=== PATIENT | male | born 1950 | race Caucasian/White ===

== ENCOUNTER 2016-05-08 16:44 | Inpatient (IN) | payer OTHER ==
[~2016-05-08] VITALS: Ht 182.9 cm; Wt 64.9 kg
[~2016-05-08 16:44] MED LIST: ADVAIR DISKUS 21 DSK IH; PREDNISONE10 MG PO; PROAIR HFA0.09 MG/Ac IH; SPIRIVA MD18 MCG/CAP INH; VIBRAMYCIN100 MG PO
--- NOTE | 2016-05-08 16:44 | NUR ---
PT BIBA TO BED 2.
--- NOTE | 2016-05-08 16:50 | NUR ---
65M BIBA FROM HOME C/O SUDDEN ONSET SHORTNESS OF BREATH X TODAY; DIMINISHED BREATH SOUNDS HEARD ON AUSCULATION W/ LABORED BREATHING AND TACHYPNEA AT THIS TIME; PT A&OX4, DENIES PAIN, N/V/D AT THIS TIME; SKIN IS WARM/DRY/INTACT; PT PLACED ON MONITOR, RESTING IN BED W/ HOB ELEVATED AND IN LOWEST POSITION; POSITIONED FOR COMFORT; ER MADE AWARE OF STATUS. WILL CONTINUE TO MONITOR. Addendum: 05/08/16 at 1834 by [facility] 13 BHARAT TO RT GROIN AREA; NO REDNESS, DRAINAGE OR INFLAMMATION NOTED AT THIS TIME; NO C/O PAIN AT THIS TIME.
[2016-05-08] MEDS ORDERED: DEXAMETHASONE 10 MG/ML VIAL IVP ONE (16:55)
[2016-05-08] MEDS ORDERED: IPRATROPIUM 0.02% 0.5 MG/2.5 ML NEBU INH ONE ×2 (16:55)
[2016-05-08] MEDS ORDERED: ALBUTEROL 0.083% 2.5 MG/3 ML NEBU INH ONE ×2 (16:55)
[2016-05-08 16:57] VITALS: BP 125/72
[2016-05-08] MEDS ORDERED: MAG SULF 2000 MG/WATER PREMIX 50 ML IV ONE ×2 (17:15→17:17)
--- NOTE | 2016-05-08 17:28 | NUR ---
RT AT BEDSIDE.
--- NOTE | 2016-05-08 17:46 | NUR ---
XRAY AT BEDSIDE.
--- NOTE | 2016-05-08 18:40 | NUR ---
CALLED [facility] TO GIVE REPORT; [facility] STATES WILL CALL BACK IN 5 MINUTES.
--- NOTE | 2016-05-08 18:48 | NUR ---
WARM BLANKET PROVIDED TO PT FOR COMFORT.
--- NOTE | 2016-05-08 18:53 | NUR ---
REPORT GIVEN TO MIAH SEGURA.
--- NOTE | 2016-05-08 19:02 | NUR ---
Patient will be admitted to care of DR. DAVIS. Admited to TELEMETRY. Will go to room 111B. Belongings list completed. Report to MIAH SEGURA.
--- NOTE | 2016-05-08 19:05 | NUR ---
RECEIVED REPORT FROM CHARGE NURSE GIUSEPPE. PATIENT ARRIVED ON UNIT JUST AFTER 1900. PATIENT IS AAOX4 , ARRIVED ON UNIT WITH O2 MASK AT 8L, NO SOB AT THIS TIME. PATIENT HAS COPD AND BARREL CHEST NOTED. PATIENT HAS IV TO LH #20 SL, PATENT. NOTED PATIENT HAS BHARAT TO RIGHT GROIN S/P HERNIA SURGERY ON 05/03/16 AT [facility]. INCISION IS DRY AND INTACT, NO SIGN OF REDNESS OR INFECTION. ALL OTHER SKIN INTACT. ORIENTED PATIENT TO ROOM AND CALL LIGHT. PATIENT PLACED OF FALL PRECAUTIONS, SIGN POSTED, WRIST BAND APPLIED. DISCUSSED PLAN OF CARE WITH PATIENT, PATIENT VERBALIZED UNDERSTANDING. CALL LIGHT WITHIN REACH. WILL CONTINUE TO MONITOR.
[2016-05-08] MEDS ORDERED: ONDANSETRON 4 MG/2 ML VIAL IVP PRN (19:40)
[2016-05-08] MEDS ORDERED: LEVOFLOXACIN 750 MG/D5W PREMIX 150 ML IV SCH (19:40)
[2016-05-08] MEDS ORDERED: NACL 0.45% 1,000 ML IV SCH (19:40)
[2016-05-08] MEDS ORDERED: ACETAMINOPHEN 325 MG TAB PO PRN (19:40)
[2016-05-08] MEDS ORDERED: TEMAZEPAM 15 MG CAP PO PRN (19:40)
[2016-05-08 20:00] VITALS: BP 118/64
--- NOTE | 2016-05-08 20:30 | NUR ---
RT PLACED PATIENT ON NASAL CANNULA @2L. PATIENT SATURATION IN HIGH 90S. NO SOB NOTED. CALL LIGHT WITHIN REACH. WILL CONTINUE TO MONITOR.
[2016-05-08] MEDS: methylPREDNISolone SS 40 MG/ML VIAL IVP SCH (21:16)
--- NOTE | 2016-05-08 21:37 | NUR ---
PM MEDS GIVEN, PATIENT TOLERATED WELL. PROVIDED THE PATIENT A SANDWICH, CALL LIGHT WITHIN REACH, WILL CONTINUE TO MONITOR.
[2016-05-08] MEDS: ALBUTEROL 0.083% 2.5 MG/3 ML NEBU INH SCH (23:15)
[2016-05-08] MEDS: IPRATROPIUM 0.02% 0.5 MG/2.5 ML NEBU INH SCH (23:16)
--- NOTE | 2016-05-08 23:43 | NUR ---
PATIENT RECEIVED BREATHING TREATMENT, STATED HE WOULD LIKE TO RELAX AND GET SOME REST NOW. NO SOB OR SIGN OF DISTRESS, CALL LIGHT WITHIN REACH. WILL CONTINUE TO MONITOR.
[2016-05-09] VITALS: BP 116/73
--- NOTE | 2016-05-09 01:32 | NUR ---
PATIENT SLEEPING COMFORTABLE, VITAL SIGNS STABLE, CALL LIGHT WITHIN REACH. WILL CONTINUE TO MONITOR.
--- NOTE | 2016-05-09 02:40 | NUR ---
PATIENT SLEEPING, CALL LIGHT WITHIN REACH. NO SOB OR SIGN OF DISTRESS, WILL CONTINUE TO MONITOR.
[2016-05-09] MEDS: ALBUTEROL 0.083% 2.5 MG/3 ML NEBU INH SCH ×6 (03:40→23:38)
[2016-05-09] MEDS: IPRATROPIUM 0.02% 0.5 MG/2.5 ML NEBU INH SCH ×6 (03:40→23:38)
[2016-05-09 04:00] VITALS: BP 115/67
--- NOTE | 2016-05-09 04:18 | NUR ---
PER RT AFTER PATIENT'S BREATHING TREATMENT, PATIENTS LUNGS STILL HAD A LOT OF FLUID WITH RONCHI AND RT RECOMMENDED LASIX, PAGED DR CLARK ABOUT RECOMMENDATION, SAID NO BECAUSE PATIENT IS NOT IN HEART FAILURE. PATIENT SITTING AT BEDSIDE, CALL LIGHT WITHIN REACH. WILL CONTINUE TO MONITOR.
[2016-05-09] MEDS: methylPREDNISolone SS 40 MG/ML VIAL IVP SCH ×3 (05:20→20:36)
--- NOTE | 2016-05-09 06:00 | NUR ---
PATIENT RESTING IN BED, PROVIDED PATIENT WITH NEW GOWN, SCDS APPLIED, NO SOB OR SIGN OF DISTRESS, CALL LIGHT WITHIN REACH. WILL CONTINUE TO MONITOR.
--- NOTE | 2016-05-09 07:27 | NUR ---
RECEIVED REPORT FROM NIGHT NURSE. PT IS AAOX4, IV TO LEFT HAND NS @ 50ML/HR INFUSING WELL, O2 3L VIA NC, INCISION TO GROIN WITH 13 BHARAT CRISTI FROM PERVIOUS HERNIA SX. INITIAL ASSESSMENT COMPLETED, REVIEWED PLAN OF CARE WITH PT, PT VERBALIZED UNDERSTANDING, ALL NEEDS MET, ALL SAFETY PRECAUTIONS MET, CALL LIGHT WITHIN REACH, WILL CONTINUE TO MONITOR.
--- NOTE | 2016-05-09 07:27 | NUR ---
ENDORSED PATIENT TO DAY RN AT BEDSIDE, PATIENT IN STABLE CONDITION.
[2016-05-09 08:00] VITALS: BP 115/76
[2016-05-09] MEDS: ENOXAPARIN 40 MG/0.4 ML SYR SUBQ SCH (09:11)
--- NOTE | 2016-05-09 09:14 | NUR ---
DUE MEDICATIONS GIVEN, PT TOLERATED WELL, CURRENTLY SITTING AT BEDSIDE. NO S/S OF RESPIRATORY DISTRESS NOTED. IV NOT FLUSHING, WILL RESTART IV. CALL LIGHT WITHIN REACH. WILL CONTINUE TO MONITOR.
--- NOTE | 2016-05-09 10:35 | NUR ---
PT CURRENTLY REFUSING NEW IV INSERTION. WILL ATTEMPT AGAIN AT A LATER TIME.
[2016-05-09] MEDS ORDERED: NORVASC5 MG PO (11:16)
[2016-05-09] MEDS ORDERED: LOSARTAN POTASS1 TA4 PO (11:16)
[2016-05-09] MEDS ORDERED: FLAGYL500 M1 PO (11:16)
[2016-05-09] MEDS ORDERED: ACETAMIN-CODE12.5 ML PO (11:16)
[2016-05-09] MEDS ORDERED: LEVOFLOXACIN750 MG PO (11:16)
[2016-05-09] MEDS ORDERED: TESSALON PERLE100 MG PO (11:16)
[2016-05-09] MEDS ORDERED: COLACE100 MG PO (11:16)
--- NOTE | 2016-05-09 11:16 | NUR ---
PATIENT HAS BEEN SCREENED AND CATEGORIZED HIGH NUTRITION RISK. PATIENT WILL BE SEEN WITHIN 1-2 DAYS OF ADMISSION. 05/09/16-05/10/[address]
--- NOTE | 2016-05-09 11:45 | NUR ---
PT CURRENTLY SLEEPING, NO S/S OF RESPIRATORY DISTRESS, O2 3L VIA NC, CALL LIGHT WITHIN REACH.
--- NOTE | 2016-05-09 11:55 | NUR ---
WOUND CARE NOTES: SEEN PATIENT TODAY RE: S/P HERNIA SURGERY. PLEASE REFER TO WOUND ASSESSMENT FLOWSHEET FOR UPDATED ENTRY. RIGHT INGUINAL INCISION INTACT WITH 13 BHARAT. PW BRUISED. NO COMPLAINTS OF PAIN MADE DURING ASSESSMENT. NO S/S OF INFECTION NOTED. NO FOLLOW UP NEEDED AT THIS TIME.
[2016-05-09 12:00] VITALS: BP 107/42
[2016-05-09] MEDS ORDERED: HYDROcodone/APAP 5/325 MG 1 TAB TAB PO PRN (12:15)
--- NOTE | 2016-05-09 12:25 | NUR ---
GAVE REPORT TO JENISE DOOLEY FROM [facility]. Addendum: 05/09/16 at 1725 by Zuleyma Ling RN DISREGARD NOTE. LYNETTE PT
[2016-05-09] MEDS ORDERED: BENZONATATE 100 MG CAPLF PO PRN (12:30)
--- NOTE | 2016-05-09 13:00 | NUR ---
NEW IV INSERTED RIGHT AC 20 G, PT TOLERATED WELL.
--- NOTE | 2016-05-09 14:04 | NUR ---
PT OUT FROM UNIT TO GET CHEST CT
--- NOTE | 2016-05-09 14:22 | NUR ---
PT BACK IN UNIT.
--- NOTE | 2016-05-09 14:30 | NUR ---
CHECKED IN ON PT, PT CURRENTLY IN BED RESTING. CALL LIGHT WITHIN REACH.
[2016-05-09 16:00] VITALS: BP 133/83
--- NOTE | 2016-05-09 16:00 | NUR ---
FAXED INITIAL REVIEW TO [facility] [place] [phone] PHONE TRA [phone]
[2016-05-09] MEDS: FUROSEMIDE 40 MG/4 ML VIAL IVP SCH (16:45)
--- NOTE | 2016-05-09 16:48 | NUR ---
DUE MEDICATIONS GIVEN PT TOLERATED WELL. PT CURRENTLY IN BED RESTING, CLEAR PRODUCTIVE COUGH NOTED. CALL LIGHT WITHIN REACH WILL CONTINUE TO MONITOR.
--- NOTE | 2016-05-09 17:50 | NUR ---
PT CURRENTLY SITTING AT BEDSIDE HAVING DINNER. NO S/S OF RESPIRATORY DISTRESS. CLEAR SPUTUM NOTED. CALL LIGHT WITHIN REACH.
--- NOTE | 2016-05-09 19:19 | NUR ---
ENDORSED PLAN OF CARE TO NIGHT NURSE. PT IN STABLE CONDITION
--- NOTE | 2016-05-09 19:20 | NUR ---
RECEIVED REPORT FROM DAYSHIFT RN FOR CONTINUITY OF CARE. PATIENT IS A&OX4, DISCUSSED PLAN OF CARE, VERBALIZED UNDERSTANDING. NO S/S OF RESPIRATORY DISTRESS NOTED ON 3L O2 VIA NC. PATIENT DENIES PAIN AT THIS TIME. IV TO RT AC 20 GAUGE FLUSHED AND PATENT. SHIFT ASSESSMENT COMPLETE, VS TAKEN, STABLE. PT HAS SURGICAL INCISION TO GROIN AREA FROM HERNIA REPAIR ON 05/03/16. PT REFUSED SCDS, STATES THEY ARE MAKING HIM HOT. SAFETY/ FALL PRECAUTIONS ENFORCED. URINAL AT BEDSIDE. CALL LIGHT PLACED WITHIN REACH. WILL CONTINUE TO MONITOR.
[2016-05-09 20:00] VITALS: BP 118/72
[2016-05-09] MEDS: metroNIDAZOLE 500 MG TAB PO SCH (20:36)
--- NOTE | 2016-05-09 20:36 | NUR ---
DUE MEDICATIONS ADMINISTERED, TOLERATED WELL. IVP MED ADMINISTERED, IV FLUSHED AND INTACT. PT UP TO USE URINAL.
[2016-05-09] MEDS: DOCUSATE SODIUM 100 MG GELCAP PO SCH (20:37)
[2016-05-09] MEDS: DOXYCYCLINE 100 MG CAP PO SCH (20:37)
--- NOTE | 2016-05-09 22:14 | NUR ---
PT COUGHING INTERMITTENTLY , REQUESTED FOR HOT WATER TO HELP GET OUT SPUTUM.
--- NOTE | 2016-05-09 23:39 | NUR ---
VS TAKEN, STABLE. PT SITTING UP IN BED RECEIVING BREATHING TX AT THIS TIME.
[2016-05-10] VITALS: BP 128/71
--- NOTE | 2016-05-10 02:19 | NUR ---
PT IS SLEEPING. NO S/S OF DISTRESS OR DISCOMFORT NOTED. CALL LIGHT WITHIN REACH.
[2016-05-10] MEDS: IPRATROPIUM 0.02% 0.5 MG/2.5 ML NEBU INH SCH ×6 (03:35→22:45)
[2016-05-10] MEDS: ALBUTEROL 0.083% 2.5 MG/3 ML NEBU INH SCH ×6 (03:35→22:45)
[2016-05-10 04:00] VITALS: BP 122/76
--- NOTE | 2016-05-10 04:01 | NUR ---
VS TAKEN, STABLE. PATIENT C/O ABDOMINAL CRAMPING AND WANTS COLACE. INFORMED PT THAT HE HAS SCHEDULED COLACE AND MIRALAX IN AM. PATIENT REQUESTED PAIN MEDICATION, MEDICATED PER MD ORDER. CALL LIGHT PLACED WITHIN REACH.
[2016-05-10] MEDS: methylPREDNISolone SS 40 MG/ML VIAL IVP SCH ×3 (04:17→20:54)
--- NOTE | 2016-05-10 05:58 | NUR ---
PT IS SLEEPING. NO S/S OF DISTRESS OR DISCOMFORT NOTED.
--- NOTE | 2016-05-10 07:12 | NUR ---
ENDORSED PATIENT TO DAYSHIFT RN FOR CONTINUITY OF CARE. PATIENT IS STABLE.
--- NOTE | 2016-05-10 07:12 | NUR ---
RECEIVED REPORT FROM NIGHT NURSE. PT IS AAOX4, IV TO RIGHT AC 20G SALINE LOCK PATENT AND INTACT, O2 3L VIA NC, INCISION TO GROIN WITH 13 BHARAT MARKETING INFORMATION ANALYST FROM PERVIOUS HERNIA SX. DAILY WT. TAKEN 149.7LBS , PT REFUSING SCD'S, INITIAL ASSESSMENT COMPLETED, REVIEWED PLAN OF CARE WITH PT, PT VERBALIZED UNDERSTANDING, ALL NEEDS MET, ALL SAFETY PRECAUTIONS MET, PT CURRENTLY SITTING AT BEDSIDE, CALL LIGHT WITHIN REACH, WILL CONTINUE TO MONITOR.
[2016-05-10 08:00] VITALS: BP_SYST 129; BP_SYST 99; BP_DIAS 78
[2016-05-10] MEDS: DOXYCYCLINE 100 MG CAP PO SCH ×2 (08:59→20:54)
[2016-05-10] MEDS: metroNIDAZOLE 500 MG TAB PO SCH ×2 (08:59→20:55)
[2016-05-10] MEDS: amLODIPine 5 MG TAB PO SCH (09:00)
[2016-05-10] MEDS ORDERED: DOCUSATE SODIUM 100 MG GELCAP PO SCH (09:00)
[2016-05-10] MEDS: POLYETHYLENE GLYCOL 17 GM/PKT PO SCH (09:00)
[2016-05-10] MEDS: FUROSEMIDE 40 MG/4 ML VIAL IVP SCH (09:00)
[2016-05-10] MEDS: ENOXAPARIN 40 MG/0.4 ML SYR SUBQ SCH (09:04)
[2016-05-10] MEDS: DOCUSATE SODIUM 100 MG GELCAP PO SCH ×2 (09:05→20:55)
--- NOTE | 2016-05-10 09:10 | NUR ---
DUE MEDICATIONS GIVEN, PT TOLERATED WELL, PT CURRENTLY SITTING AT BEDSIDE, NO S/S OR RESPIRATORY DISTRESS, CALL LIGHT WITHIN REACH.
--- NOTE | 2016-05-10 10:30 | NUR ---
CHECKED IN ON PT, PT CURRENTLY WATCHING TV, CALL LIGHT WITHIN REACH.
[2016-05-10 11:56] VITALS: BP 123/72
--- NOTE | 2016-05-10 12:11 | NUR ---
DUE MEDIATIONS GIVEN, PT CURRENTLY SITTING AT BED EATING LUNCH. CALL LIGHT WITHIN REACH, WILL CONTINUE TO MONITOR
--- NOTE | 2016-05-10 12:22 | NUR ---
FA[place]ED [place] [facility] [place] [phone] PHONE TRA [phone]
--- NOTE | 2016-05-10 12:40 | NUR ---
05/10/16 RD INITIAL ASSESSMENT COMPLETED PLEASE REFER TO NUTRITION ASSESSMENT UNDER CARE ACTIVITY FOR ESTIMATED NUTRITIONAL NEEDS. RD RECOMMENDATIONS: 1. CONTINUE REGULAR DIET TOLERATED 2. PT MEETING > 75% EST NUTRITIONAL NEDS 3. RD WILL F/U 5-7 DAYS; LOW RISK. LINDSEY ENCARNACION RD
--- NOTE | 2016-05-10 13:41 | NUR ---
DR DAVIS IN TO SEE PT
--- NOTE | 2016-05-10 14:00 | NUR ---
DISCUSSED DISCHARGE ORDER AND PLAN OF ACRE WITH PT. PT VERBALIZED UNDERSTANDING, ALL NEEDS MET. CALL LIGHT WITHIN REACH WILL CONTINUE TO MONITOR
[2016-05-10] MEDS ORDERED: SODIUM PHOSPHATE 118 ML ENEM RC PRN (14:50)
--- NOTE | 2016-05-10 15:45 | NUR ---
PT CURRENTLY WATCHING TV. NO S/S OF RESPIRATORY DISTRESS NOTED. CALL LIGHT WITHIN REACH WILL CONTINUE TO MONITOR
[2016-05-10 16:00] VITALS: BP 112/64
--- NOTE | 2016-05-10 17:27 | NUR ---
FLEET ENEMA GIVEN. PT TOLERATED WELL. WILL CONTINUE TO MONITOR
--- NOTE | 2016-05-10 18:25 | NUR ---
CHECKED IN ON PT. PT CURRENTLY SITTING AT BEDSIDE, NO S/S OF RESPIRATORY DISTRESS NOTED. ALL NEEDS MET. CALL LIGHT WITHIN REACH.
--- NOTE | 2016-05-10 19:10 | NUR ---
ENDORSED PLAN OF CARE TO NIGHT NURSE, PT IN STABLE CONDITION.
--- NOTE | 2016-05-10 19:12 | NUR ---
RECEIVED REPORT FROM KRISTIE DOOLEY FOR CONTINUITY OF CARE. PATIENT IS A&OX4, DISCUSSED UPDATED PLAN OF CARE, PT VERBALIZED UNDERSTANDING. NO S/S OF RESPIRATORY DISTRESS NOTED ON 3L O2 VIA NC. PATIENT IS SITTING IN BED COMFORTABLY. PATIENT DENIES PAIN AT THIS TIME. IV TO RT AC 20 GAUGE FLUSHED AND PATENT. SHIFT ASSESSMENT DONE, VS TAKEN, STABLE. PT HAS INCISION TO RIGHT GROIN AREA S/P HERNIA REPAIR ON 05/03/16. SAFETY/ FALL PRECAUTIONS ENFORCED. CALL LIGHT PLACED WITHIN REACH. WILL CONTINUE TO MONITOR.
[2016-05-10 20:00] VITALS: BP 121/69
--- NOTE | 2016-05-10 20:55 | NUR ---
DUE MEDICATIONS ADMINISTERED, TOLERATED WELL. ALL NEEDS MET AT THIS TIME.
--- NOTE | 2016-05-10 22:45 | NUR ---
RT IN GIVING BREATHING TX AT THIS TIME.
[2016-05-11] VITALS: BP 113/72
--- NOTE | 2016-05-11 00:06 | NUR ---
VS TAKEN, STABLE. PT COUGHING AND REQUESTED WARM WATER. CALL LIGHT PLACED WITHIN REACH.
[2016-05-11] MEDS: IPRATROPIUM 0.02% 0.5 MG/2.5 ML NEBU INH SCH ×2 (02:03→06:45)
[2016-05-11] MEDS: ALBUTEROL 0.083% 2.5 MG/3 ML NEBU INH SCH ×2 (02:03→06:45)
--- NOTE | 2016-05-11 02:12 | NUR ---
PT IS SLEEPING. NO S/S OF DISTRESS OR DISCOMFORT NOTED. CALL LIGHT WITHIN REACH.
[2016-05-11 04:00] VITALS: BP 122/72
--- NOTE | 2016-05-11 04:11 | NUR ---
VS TAKEN, STABLE. PT REQUESTED WARM WATER FOR COUGHING. CALL LIGHT PLACED WITHIN REACH. WILL CONTINUE TO MONITOR.
[2016-05-11] MEDS: methylPREDNISolone SS 40 MG/ML VIAL IVP SCH (05:18)
--- NOTE | 2016-05-11 05:56 | NUR ---
PT IS AWAKE WATCHING TELEVISION, NO S/S OF RESPIRATORY DISTRESS NOTED. CALL LIGHT WITHIN REACH.
--- NOTE | 2016-05-11 07:29 | NUR ---
ENDORSED PATIENT TO DAYSHIFT RN FOR CONTINUITY OF CARE. PATIENT IS LAYING IN BED WATCHING TELEVISION.
[2016-05-11 08:00] VITALS: BP 115/68
[2016-05-11] MEDS: amLODIPine 5 MG TAB PO SCH (08:17)
[2016-05-11] MEDS: metroNIDAZOLE 500 MG TAB PO SCH (08:17)
[2016-05-11] MEDS: DOCUSATE SODIUM 100 MG GELCAP PO SCH (08:17)
[2016-05-11] MEDS: DOXYCYCLINE 100 MG CAP PO SCH (08:17)
[2016-05-11] MEDS: POLYETHYLENE GLYCOL 17 GM/PKT PO SCH (08:18)
--- NOTE | 2016-05-11 08:20 | NUR ---
ADMINISTERED MEDS. PT ATE BREKFAST. FAMILY AT THE BEDSIDE. PT REMOVED EKG STATED " HE WILL GO HOME SOON'. REFUSED TO PLACE BACK THE LEADS
[2016-05-11 08:31] VITALS: BP 115/79
--- NOTE | 2016-05-11 08:50 | NUR ---
REMOVED IV INTACT. A[PPLIED PRESSURE SECURE WITH TAPE WHEELED PATIENT TO THE LOBBY WITH CONT OXYGE. PT HAVE OXYGEN INSIDE THE CAR. NO SX OF DISTRESS. PT STATED HAVE " COMPLETE OXYGEN THERAPY AT HOME WITH NEBULIZER AND OXYGEN CONCENTRATOR PT RECEIVED THE PRESCRIPTION PT WHEELED OFF AT 0855
[2016-05-11] MEDS ORDERED: PSYLLIUM 12.2 GM/PKT PO SCH (09:00)
== END 2016-05-11 08:55 | disposition home or self-care (01) | DRG 189 ==
LOC: MED 16:44 → MTU 18:33
PROVIDERS: ADMIT Hospitalist; ATTEND Hospitalist
DX: J96.20 Acute and chronic respiratory failure, unspecified whether with hypoxia or hypercapnia (principal); J44.1 Chronic obstructive pulmonary disease with (acute) exacerbation; R91.1 Solitary pulmonary nodule; K59.00 Constipation, unspecified; I10 Essential (primary) hypertension; Z99.81 Dependence on supplemental oxygen; Z79.52 Long term (current) use of systemic steroids; Z87.891 Personal history of nicotine dependence

== ENCOUNTER 2016-05-19 20:31 | Inpatient (IN) | payer OTHER ==
[~2016-05-19] VITALS: Ht 182.9 cm; Wt 60.3 kg
[~2016-05-19 20:31] MED LIST changes: +ACETAMIN-CODE12.5 ML PO; +COLACE100 MG PO; +FLAGYL500 M1 PO; +LEVOFLOXACIN750 MG PO; +LOSARTAN POTASS1 TA4 PO; +NORVASC5 MG PO; +TESSALON PERLE100 MG PO
--- NOTE | 2016-05-19 20:31 | NUR ---
2027 Patient being evaluated by physician at bedside.
--- NOTE | 2016-05-19 20:31 | NUR ---
2024 BIBA ALS TO ER BED 3
[2016-05-19 20:33] VITALS: BP 159/104
[2016-05-19 20:39] VITALS: BP 159/104
[2016-05-19] MEDS ORDERED: NACL 0.9% 1,000 ML IV ONE (20:43)
--- NOTE | 2016-05-19 20:44 | NUR ---
PT IS A 65Y/M BIB EMS WITH C/O SOB, PER EMS ;PATIENT HX.COPD ON BREATHING TREATMENT AT HOME, HAVING SOB X 30 MINS, BREATHING TREATMENT GIVEN X 2, ON CPAP O2 SAT 90-92%.
[2016-05-19] MEDS ORDERED: AZITHROMYCIN 500 MG in DEXTROSE 5% 250 ML IV ONE (20:45)
[2016-05-19] MEDS ORDERED: methylPREDNISolone SS 125 MG in WATER STERILE 2 ML IV ONE (20:45)
[2016-05-19] MEDS ORDERED: ALBUTEROL SULFATE/IPRATROPIU 3 ML SOL IH ONE (20:45)
[2016-05-19] MEDS ORDERED: AZITHROMYCIN 500 MG INJ VIAL IV ONE (20:51)
--- NOTE | 2016-05-19 21:53 | NUR ---
PT REFUSED TO GIVE URINE NOW AND ALSO REFUSED TO HAVE A STRAIGHT CATHETER DESPITE EXPLAINING THE RISKS AND BENEFITS OF IT. DR. JENKINS NOTIFIED AND SAID THAT'S FINE.
--- NOTE | 2016-05-19 22:14 | NUR ---
Patient will be admitted to care of DR. PRYOR. Admited to TELEMETRY. Will go to room 119B. Belongings list completed. Report to LOAN DOOLEY.
[2016-05-19] MEDS ORDERED: HYDROcodone/APAP 5/325 MG 1 TAB TAB PO PRN (22:15)
[2016-05-19] MEDS ORDERED: MORPHINE SULFATE 2 MG/ML SYR IVP PRN (22:15)
[2016-05-19] MEDS ORDERED: LORazepam 2 MG/ML VIAL IVP PRN (22:15)
[2016-05-19] MEDS ORDERED: ACETAMINOPHEN 325 MG TAB PO PRN (22:15)
[2016-05-19] MEDS ORDERED: [UNRECOGNIZED DRUG - OTHER] PO PRN (22:25)
[2016-05-19] MEDS ORDERED: ACETAMINOPHEN WITH CODEINE PO PRN (22:25)
[2016-05-19] MEDS ORDERED: BENZONATATE 100 MG CAPLF PO PRN (22:25)
[2016-05-19 22:30] VITALS: BP 102/82
--- NOTE | 2016-05-19 22:40 | NUR ---
RECEIVED PT FROM ER VIA ADITHYA ON BIPAP 02 35%, RESP THERAPY AT SIDE, PT IS AAOX4 ON TELEMETRY ST, HL O;N RT AC PATENT ON RT GROIN S/P RT INGUINAL REPAIR AND 13 BHARAT CLOSE WOUND DRY AND CLEAN PT IS ORIENTED TO THE FLOOR CALL LIGHT WITHIN REACH
[2016-05-19] MEDS: NACL 0.9% 1,000 ML IV SCH (22:45)
--- NOTE | 2016-05-19 22:50 | NUR ---
2235 TRANSFERRED PATIENT TO THE FLOOR ON BIPAP WITH NO INCIDENT. PT ON CONTINUOS POX. SATS 100%. PT IS BREATHING BETTER.
[2016-05-19] MEDS ORDERED: metroNIDAZOLE 500 MG TAB PO SCH (23:45)
[2016-05-20] VITALS: BP 116/74
--- NOTE | 2016-05-20 | NUR ---
PT REMAIN MORE STBLE ON BIPAP 30% 02 RESP THERAPY IS HERE ON TELEMETRY ST
[2016-05-20] MEDS: ALBUTEROL 0.083% 2.5 MG/3 ML NEBU IH PRN ×4 (00:46→20:12)
[2016-05-20 04:00] VITALS: BP 120/71
--- NOTE | 2016-05-20 04:00 | NUR ---
PT ON CLOSE MONITORING ON BIPAP FIO2 30% NOT RESPIRATORY DISTRESS ON TELEMETRY SR
[2016-05-20] MEDS: methylPREDNISolone SS 125 MG/2 ML VIAL IVP SCH ×3 (05:00→20:42)
--- NOTE | 2016-05-20 06:41 | NUR ---
PT ;ON BIPAP NOT DISTRESS NOTED ON TELEMETRY SR IV ON RT AC INFUSING WELL
--- NOTE | 2016-05-20 07:05 | NUR ---
RECEIVED REPORT FROM NIGHT RN. PT RESTING IN BED. AAOX4. NO S/S OF ACUTE DISTRESS. PT ON BIPAP 03/14, FIO2 30%. PT DENIES PAIN AT THIS TIME. IV SITE PATENT AND INTACT. CALL LIGHT WITHIN REACH. SAFETY MEASURES ENSURED. WILL CONTINUE TO MONITOR.
[2016-05-20] MEDS: [UNRECOGNIZED DRUG - OTHER] INH SCH (07:48)
[2016-05-20 07:56] VITALS: BP 137/84
--- NOTE | 2016-05-20 08:00 | NUR ---
PATIENT REQUESTED TO BE OFF BIPAP, PLACED ON NC 2LPM O2SAT 96% HR 111 RR 20
--- NOTE | 2016-05-20 08:03 | NUR ---
DR. PRYOR IN TO SEE PT. WILL FOLLOW UP WITH PLAN OF CARE.
[2016-05-20] MEDS ORDERED: MAG SULF 2000 MG/WATER PREMIX 50 ML IV SCH (08:30)
--- NOTE | 2016-05-20 08:35 | NUR ---
PATIENT HAS BEEN SCREENED AND CATEGORIZED HIGH NUTRITION RISK. PATIENT WILL BE SEEN WITHIN 1-2 DAYS OF ADMISSION. 05/20/16-05/21/[address]
[2016-05-20] MEDS: metroNIDAZOLE 500 MG TAB PO SCH ×2 (08:38→20:42)
[2016-05-20] MEDS: LEVOFLOXACIN 750 MG TAB PO SCH (08:38)
[2016-05-20] MEDS: HYDROCHLOROTHIAZIDE 25 MG TAB PO SCH (08:38)
[2016-05-20] MEDS: LOSARTAN 50 MG TAB PO SCH (08:39)
[2016-05-20] MEDS: ASPIRIN 81 MG TAB.CHEW PO SCH (08:39)
[2016-05-20] MEDS: amLODIPine 5 MG TAB PO SCH (08:39)
[2016-05-20] MEDS: DOCUSATE SODIUM 100 MG GELCAP PO SCH ×2 (08:39→20:42)
[2016-05-20] MEDS: ENOXAPARIN 40 MG/0.4 ML SYR SUBQ SCH (08:42)
[2016-05-20] MEDS ORDERED: FLUTICASONE 250 MCG/SALMETEROL 50 MCG DISK IH SCH (09:00)
[2016-05-20] MEDS ORDERED: NON-FORMULARY ITEM (Losartan/Hydrochlorothiazide (Losartan-Hctz 100-12.5 mg Tab) 1 TAB) PO SCH (09:00)
--- NOTE | 2016-05-20 09:53 | NUR ---
PT RESTING IN BED. NO S/S OF ACUTE DISTRESS. PT DENIES PAIN. ON O2 2L NC. CALL LIGHT WITHIN REACH. WILL CONTINUE TO MONITOR.
--- NOTE | 2016-05-20 11:36 | NUR ---
CM NOTE PER PUMP AND BLOWER OPERATOR ABDIRAHMAN EXT [phone], REVIEWS SHOULD ONLY BE SENT TO [facility]. INITIAL REVIEW SENT TO [facility] FAX# [phone] ATTN: TRA Whitman PH# [phone]
--- NOTE | 2016-05-20 11:56 | NUR ---
SS NOTE: I SPOKE WITH YAMILE FROM [facility] ([phone]) TO FOLLOW UP ON WHY PT'S HOME FILL SYSTEM WAS NOT DELIVERED. SHE STATED THAT PT SPOKE WITH ONE OF THEIR REPS ON 05/11/16 AND PT WAS INFORMED THAT THERE WAS NOT AN ORDER FOR A HOME FILL SYSTEM. I INQUIRED WHY THEY WOULD DELIVER PORTABLE OXYGEN AND A CONCENTRATOR WITHOUT A HOME FILL SYSTEM. SHE REPORTED THAT IT IS NOT STANDARD FOR THEM TO DELIVER A HOME FILL SYSTEM WITH THAT EQUIPMENT UNLESS THEY GET A SPECIFIC ORDER FOR A HOME FILL SYSTEM.
[2016-05-20 12:00] VITALS: BP 121/66
--- NOTE | 2016-05-20 12:14 | NUR ---
SS NOTE: SENT PT'S FACE SHEET AND MD ORDER FOR HOME FILL SYSTEM TO [facility] (F: [phone]), RECEIVED FAX CONFIRMATION I SPOKE WITH [facility] CM TRA MOSS AND INFORMED HER ABOUT THE ABOVE INFORMATION. SHE STATED THAT THEY WILL WORK ON THE AUTH FOR [facility].
[2016-05-20] MEDS: NACL 0.9% 1,000 ML IV SCH (12:16)
--- NOTE | 2016-05-20 12:21 | NUR ---
PT SITTING IN BED. NO S/S OF ACUTE DISTRESS. PT DENIES PAIN. CALL LIGHT WITHIN REACH. WILL CONTINUE TO MONITOR.
--- NOTE | 2016-05-20 14:03 | NUR ---
PT RESTING IN BED. NO S/S OF ACUTE DISTRESS. PT DENIES PAIN. ON O2 2L NC. CALL LIGHT WITHIN REACH. WILL CONTINUE TO MONITOR.
--- NOTE | 2016-05-20 14:27 | NUR ---
CM NOTE SPOKE WITH YVETTE TO FOLLOW UP ON THE ORDER FOR HOME FILL SYSTEM FOR THE PATIENT PH# [phone]. PER BRICE, THE ETA OF THE HOME FILL SYSTEM TO BE DELIVERED TO PATIENT'S HOME IS BETWEEN 2:30 AND 6:30PM TODAY AND THAT THEY HAVE ALSO SPOKEN TO THE PATIENT'S GIRLFRIEND TORI SCHUSTER PH# [phone] WHO IS AT HOME TO RECEIVE THE DELIVERY. Addendum: 05/20/16 at 1512 by Madeline MALIK I SPOKE WITH PT BEDSIDE AND INFORMED HIM OF THE ABOVE INFORMATION. HE STATED THAT TORI CALLED HIM AND CONFIRMED THAT THEY CONTACTED HER TO ENSURE THAT SHE WAS HOME TO RECEIVE PT'S HOME FILL SYSTEM DELIVERY.
[2016-05-20 16:00] VITALS: BP 104/54
--- NOTE | 2016-05-20 16:11 | NUR ---
PT RESTING IN BED. NO S/S OF ACUTE DISTRESS. PT DENIES PAIN. CALL LIGHT WITHIN REACH. WILL CONTINUE TO MONITOR.
--- NOTE | 2016-05-20 19:12 | NUR ---
ENDORSED PLAN OF CARE TO NIGHT RN. PT REMAINS IN STABLE CONDITION
--- NOTE | 2016-05-20 19:30 | NUR ---
RECEIVED REPORT FROM MELVIN DOOLEY AT BEDSIDE. PT IS ALERT AWAKE ORIENTED X4. INITIAL ASSESSMENT DONE. NO S/S OF RESPIRATORY DISTRESS OR SOB NOTED. ON O2 @ 2L/MIN VIA NASAL CANULA. NO C/O PAIN OR ANY DISCOMFORT AT THIS TIME. PLAN OF CARE REVIEWED TO PT AND VERBALIZED UNDERSTANDING. CALL LIGHT WITHIN REACH. WILL CONTINUE TO MONITOR.
[2016-05-20 20:00] VITALS: BP 111/61
[2016-05-21] VITALS (7 sets, daily range): BP systolic 93–116; BP diastolic 58–71
--- NOTE | 2016-05-21 00:20 | NUR ---
PT IS SLEEPING RIGHT NOW BUT EASILY AROUSABLE. NO S/S OF ANY DISCOMFORT AT THIS TIME. ALL NEEDS ARE ATTENDED. CALL LIGHT WITHIN REACH. WILL CONTINUE TO MONITOR.
[2016-05-21] MEDS: methylPREDNISolone SS 125 MG/2 ML VIAL IVP SCH ×3 (04:13→20:19)
--- NOTE | 2016-05-21 05:30 | NUR ---
AM CARE RENDERED. BED LINEN CHANGED. INSTRUCTED PT TO REPOSITION. KEPT CLEAN AND DRY. CALL LIGHT WITHIN REACH. WILL CONTINUE TO MONITOR.
--- NOTE | 2016-05-21 07:17 | NUR ---
PT HAS NO S/S OF ANY DISCOMFORT. PLAN OF CARE ENDORSED TO SANTOS RN AT BEDSIDE FOR CONTINUITY OF CARE.
--- NOTE | 2016-05-21 07:18 | NUR ---
PT ALERT AND ORIENTED X4, BREATHING EVENLY AND UNLABORED, NO SIGNS OF ACUTE DISTRESS. SKIN IS WARM AND DRY. NO SIGNS OF ANY BOWEL/BLADDER DISCOMFORT. DENIES OF ANY PAIN AT THIS TIME. ALL NEEDS ATTENDED. SAFETY PRECAUTIONS MAINTAINED. CALL LIGHT WITHIN REACH.
[2016-05-21] MEDS: LEVOFLOXACIN 750 MG TAB PO SCH (08:58)
[2016-05-21] MEDS: DOCUSATE SODIUM 100 MG GELCAP PO SCH ×2 (08:58→20:19)
[2016-05-21] MEDS: ASPIRIN 81 MG TAB.CHEW PO SCH (08:58)
[2016-05-21] MEDS: metroNIDAZOLE 500 MG TAB PO SCH ×2 (08:58→20:19)
[2016-05-21] MEDS: HYDROCHLOROTHIAZIDE 25 MG TAB PO SCH (08:58)
[2016-05-21] MEDS: NACL 0.9% 1,000 ML IV SCH (08:58)
[2016-05-21] MEDS: amLODIPine 5 MG TAB PO SCH (08:59)
[2016-05-21] MEDS: LOSARTAN 50 MG TAB PO SCH (08:59)
[2016-05-21] MEDS: ENOXAPARIN 40 MG/0.4 ML SYR SUBQ SCH (09:02)
[2016-05-21] MEDS: [UNRECOGNIZED DRUG - OTHER] INH SCH (09:21)
--- NOTE | 2016-05-21 12:18 | NUR ---
05/21/2016 RD INITIAL ASSESSMENT COMPLETED PLEASE REFER TO NUTRITION ASSESSMENT UNDER CARE ACTIVITY FOR ESTIMATED NUTRITIONAL NEEDS. RD RECOMMENDATIONS: 1. CONTINUE ON REGULAR DIET MEDICALLY APPROPRIATE AND TOLERATED BY PT. 2. RDN WILL PROVIDE PT WITH HEALTH SHAKES TID WITH MEALS D/T UNDERWEIGHT STATUS AND INCREASED NEEDS D/T PULMONARY DISEASE. 3. RD WILL F/U 5-7 DAYS; LOW RISK. KIRSTIE BENOIT, , RDN
[2016-05-21] MEDS: ALBUTEROL 0.083% 2.5 MG/3 ML NEBU IH PRN (13:45)
--- NOTE | 2016-05-21 14:45 | NUR ---
WAS SEEN BY DR. PRYOR, CONTINUE TO MONITOR.
--- NOTE | 2016-05-21 16:06 | NUR ---
CALLED DR. PRYOR AND REPORTED PT HAS AN EPISODE OF BLACK STOOL. RECEIVED NEW ORDER TO OBTAIN STOOL OB X1. NOTED AND CARRIED OUT.
--- NOTE | 2016-05-21 18:53 | NUR ---
PT ALERT AND RESPONSIVE, NO SIGNS OF ACUTE DISTRESS. ENDORSED TO ONCOMING LODE MINER BLASTING NURSE FOR CONTINUITY OF CARE.
--- NOTE | 2016-05-21 19:32 | NUR ---
RECEIVED FROM AM RN IN BED AWAKE AND SITTING UP IN BED WATCHING TV. NO COMPLAINTS OF ANY PAIN AT THIS TIME. NO SOB. DENIES PAIN AT THIS TIME. CARE PLANS FOR THE NIGHT DISCUSSED WITH HIM. A/O X 4. ROM X 4. CLEAR SPEECH. TELEMETRY MONITORING. DX. OF COPD EXACERBATION. IVF SITE TO RFA #18 INTACT AND NO INFILTRATION NOTED AT THIS TIME. CALL LIGHT WITH IN REACH. ENCOURAGED TO CALL FOR ANY HELP HE MAY NEED OR IF IN PAIN.
--- NOTE | 2016-05-21 21:00 | NUR ---
PT IS NOT IN ANY RESP DISTRESS OR SOB, HE WILL CALL FOR HHN TX IF NEEDED.
--- NOTE | 2016-05-21 21:55 | NUR ---
SLEEPING AT THIS TIME. NO SOB. NO RESTLESSNESS NOTED. TELEMETRY MONITORING. BED ALARM ON. CALL LIGHT WITH IN REACH. A/O X 4.
--- NOTE | 2016-05-21 23:16 | NUR ---
PT. AWAKE AND JUST CAME BACK FROM RESTROOM TO URINATE. NO SOB. ON 02 AT 2LPM/NC. A/O X 4. ROM X 4. CLEAR SPEECH. TELEMETRY MONITORING. USES CALL LIGHT FOR HELP.
[2016-05-22] VITALS (10 sets, daily range): BP systolic 79–115; BP diastolic 51–73
--- NOTE | 2016-05-22 01:05 | NUR ---
STOOL SPECIMEN FOR STOOL OB COLLECTED AND SENT TO LABORATORY.
[2016-05-22] MEDS: ALBUTEROL 0.083% 2.5 MG/3 ML NEBU IH PRN ×4 (01:31→07:25)
[2016-05-22] MEDS: NACL 0.9% 1,000 ML IV SCH (04:17)
[2016-05-22] MEDS: methylPREDNISolone SS 125 MG/2 ML VIAL IVP SCH (05:33)
--- NOTE | 2016-05-22 05:40 | NUR ---
PT CALLED FOR HHN TX DUE SOB, . AFTER TX PT STILL FEELING TIED AND REFUSING BIPAP, BUT I EXPLAIN THAT HE NEEDED AND HE WILL END UP INTUBATED, I PLACED PT IN BIPAP, GAVE HIM ONE MORE HHN IN LINE WITH BIPAP, AND AFTER 20MIN HE IS FEELING BETTER.
--- NOTE | 2016-05-22 06:26 | NUR ---
SLEEPING AT THIS TIME. PT. MORE RELAXED NOW. TELEMETRY MONITORING. MADE SURE CALL LIGHT WITH IN REACH. A/O X 4.
[2016-05-22] MEDS ORDERED: LORazepam 2 MG/ML VIAL IVP PRN (07:25)
--- NOTE | 2016-05-22 07:26 | NUR ---
RECEIVED ON A HORT[employer]IA [employer] V60 BIPAP WITH SRTTING NOTED PLUGGEN IN RED OUTLET TOLERATING WELL WITHOUT INCIDENT TO A LARGE FACIAL MASK SECURED WITH HEAD STRAP LOC ASLEEP EASILY AWAKENS EDUCATION PROVIDED TO PATIENT ON BIPAP, HHN THERAPY AND DISEASE PROCESS PER V.O. DR. PRYOR WEAN PATIENT FROM BIPAP PATIENT AWARE WITH ACKNOWLEDGEMENT OF WEANING FROM BIPAP SHERLYNN STATES THAT HE USES SUPPLEMENATL OXYGEN AT SLPM VIA NC AT HOME HHN THERAPY GIVEN INLINE WITH ADVERSE REACTIONS NOTED
--- NOTE | 2016-05-22 07:29 | NUR ---
INFORMED MD MARLEY THAT PT. STOOL OB +. NO FURTHER ORDER GIVEN TO ME AT THIS TIME. . IN HERE TO SEE PT. PERSONALLY. ENDORSED TO THE NEXT RN FOR CONTINUITY OF CARE. AWAKE AND ALERT AND STILL ON BIPAP.
--- NOTE | 2016-05-22 07:30 | NUR ---
Patient's Plan of Care was discussed and reviewed with REGISTERED NURSE AMBULATORY: FEDERICO Oh Addendum: 05/22/16 at 1142 by Baron Jaramillo RN LYNETTE PT.
--- NOTE | 2016-05-22 07:40 | NUR ---
RECEIVED FROM MIGHT SHIFT NURSE AT BEDSIDE FOR CONTINUITY OF CARE. PATIENT IS AWAKE, ALERT, AND ORIENTED X4. INITIAL ASSESSMENT DONE. NO COMPLAINTS OF ANY PAIN. NO SOB. ABLE TO FOLLOW COMMAND AND CLEAR SPEECH. TELEMETRY MONITORING. IV ON RIGHT FOREARM #18 INTACT AND NO INFILTRATION NOTED AT THIS TIME. SAFETY MEASURED CHECKED AND WILL CONTINUE TO MONITOR. CALL LIGHT WITH IN REACH.
[2016-05-22] MEDS ORDERED: PANTOPRAZOLE 40 MG TABEC PO SCH (08:30)
[2016-05-22] MEDS: DOCUSATE SODIUM 100 MG GELCAP PO SCH ×3 (09:00→09:56)
[2016-05-22] MEDS: LOSARTAN 50 MG TAB PO SCH (09:00)
[2016-05-22] MEDS: HYDROCHLOROTHIAZIDE 25 MG TAB PO SCH (09:00)
[2016-05-22] MEDS: ALPRAZolam 0.5 MG TAB PO SCH ×2 (09:00→21:20)
[2016-05-22] MEDS: amLODIPine 5 MG TAB PO SCH (09:00)
--- NOTE | 2016-05-22 09:00 | NUR ---
HOLD BLOOD PRESSURE MED DUE TO LOW BLOOD PRESSURE OF 93/51. WILL CONTINUE TO MONITOR.
[2016-05-22] MEDS: [UNRECOGNIZED DRUG - OTHER] INH SCH (09:27)
--- NOTE | 2016-05-22 09:28 | NUR ---
WEANING PATIENT OFF BIPAP TO MASK (REFERENCE NOTE AT 0728} Addendum: 05/22/16 at 0940 by Miles Pepper RT PLACED ON HUMIDIFIED SUPPLEMENTAL OXYGEN AT 2 LPM VIA NC
--- NOTE | 2016-05-22 09:35 | NUR ---
CONTINUOS PULSE OXIMETRY AT BEDSIDE ON AND FUNCTIONING WELL LOW SATURATION ALARM SET AT 90%
[2016-05-22] MEDS: LEVOFLOXACIN 750 MG TAB PO SCH (09:52)
[2016-05-22] MEDS: metroNIDAZOLE 500 MG TAB PO SCH ×2 (09:52→21:20)
--- NOTE | 2016-05-22 10:33 | NUR ---
RECEIVED CALLED FROM LAB FOR CRITICAL LAB HG 4.7 AND [address]. PAGET DR. PRYOR WAITING FOR CALL BACK.
--- NOTE | 2016-05-22 10:43 | NUR ---
RECEIVED CALL BACK FROM DR. PRYOR, RECEIVED ORDER FOR 3 UNIT OF PACKED RBC, NPO EXCEPT MEDS, AND PROTONIX DRIPS.
[2016-05-22] MEDS ORDERED: NACL 0.9% 500 ML IV SCH (10:50)
[2016-05-22] MEDS: ALBUTEROL 0.083% 2.5 MG/3 ML NEBU INH SCH ×4 (11:32→23:11)
[2016-05-22] MEDS: PANTOPRAZOLE 80 MG in NACL 0.9% 100 ML IVP SCH ×2 (11:43→21:19)
[2016-05-22] MEDS: SUCRALFATE 1 GM TAB PO SCH ×2 (12:00→18:00)
--- NOTE | 2016-05-22 12:00 | NUR ---
DR. ROJAS ORDER FOR PATIENT TO BE TRANSFER TO ICU. REPORT GIVEN TO MARGOT DOOLEY AT ICU.
--- NOTE | 2016-05-22 12:05 | NUR ---
PATIENT TRANSFERRED TO ICU-7 BY RN AND TRADE FACILITATOR PLACED ON SUPPLEMENTAL OXYGEN AT 2 LPM VIA NC HR 124 RR 24 TOLERATED TRANSFER WELL WITHOUT INCIDENT Addendum: 05/22/16 at 1225 by Miles Pepper RT [facility] V60 BIPAP TRANSFERRED ICU-7 PLACED AT BEDSIDE
--- NOTE | 2016-05-22 12:17 | NUR ---
RECEIVED PATIENT FROM TELEMETRY WITH LOW HEMOGLOBIN.PT IS ALERT,ORIENTED X 3 .NO CO PAIN.PT ON 2L NC RR=18.PT SATURATION IS 98 PERCENT.PT LOOKS VERY PALE .ST ON THE MONITOR.SIGNIFICANT OTHER AWARE OF PATIENTS CONDITION.RIGHT FOREARM 18 GAUGE WITH PROTONIX AT 10 ML/H.WILL START IV.
--- NOTE | 2016-05-22 13:02 | NUR ---
RECEIVED PATIENT FROM TELEMETRY WITH LOW HEMOGLOBIN.PT IS ALERT,ORIENTED X 3 .NO CO PAIN.PT ON 2L NC RR=18.PT SATURATION IS 98 PERCENT.PT LOOKS VERY PALE .ST ON THE MONITOR.SIGNIFICANT OTHER AWARE OF PATIENTS CONDITION.RIGHT FOREARM 18 GAUGE WITH PROTONIX AT 10 ML/H.WILL START IV. Addendum: 05/22/16 at 1511 by Phoebe Galindo RN RN PLS DISREGARD WRONG TIME
[2016-05-22] MEDS: methylPREDNISolone SS 40 MG/ML VIAL IVP SCH ×2 (13:22→21:20)
--- NOTE | 2016-05-22 17:30 | NUR ---
PER DISABILITIES SERVICES OFFICER PATIENT HAD 6 BEATS OF PVCS.DR GRIFFIN PAGED.
--- NOTE | 2016-05-22 17:40 | NUR ---
DR GOMEZ COVERING FOR DR PRYOR CALLED AND NOTIFIED ABOUT 6 BEATS OF PVC AND MAG LEVEL IS 1.7.ORDERS RECEIVED..PT ASYMPTOMATIC.
--- NOTE | 2016-05-22 18:00 | NUR ---
DR Victor Manuel MEJIA MADE AWARE PT NO URINE OUTPUT.
[2016-05-22] MEDS: ONDANSETRON 4 MG/2 ML VIAL IVP PRN (18:08)
--- NOTE | 2016-05-22 18:09 | NUR ---
PATIENT FEELS NAUSEATED SO CARAFATE WAS NOT GIVEN
[2016-05-22] MEDS ORDERED: MAG SULF 2000 MG/WATER PREMIX 50 ML IV SCH (18:35)
[2016-05-22] MEDS ORDERED: FUROSEMIDE 40 MG/4 ML VIAL IVP SCH (19:15)
--- NOTE | 2016-05-22 19:20 | NUR ---
RECEIVED REPORT FROM MIAH MIKE AT BEDSIDE, PATIENT IS LYING IN BED, AAOX4, ABLE TO FOLLOW COMMANDS AND MAKE NEEDS KNOWN, ON C-PAP, WHEEZING LUNG SOUNDS, RT AT BEDSIDE. ST ON MONITOR, HYPOREACTIVE BOWL SOUNDS, FIRM ABD NOTED, AFEBRILE, SKIN IS WARM AND DRY TO TOUCH, SURGICAL WOUND AT RIGHT GROIN AREA WITH BHARAT NOTED (SEE WOUND ASSESSMENT), OUTSIDE RIGGER. IV SITE ON RIGHT AC 18GA AND RIGHT FOREARM 18GA RUNNING WITH PROTONIX DRIP AT 10ML/HR, AND MG AT 25ML/HR. SAFETY CHECKED, PROVIDED COMFORT POSITIONING, WILL CONTINUE TO MONITOR.
--- NOTE | 2016-05-22 19:20 | NUR ---
REPORT GIVEN TO PALOMO VAN FOR CONTINUITY OF CARE
--- NOTE | 2016-05-22 19:27 | NUR ---
randy public relations account supervisor notified needs to give magrider.
--- NOTE | 2016-05-22 19:28 | NUR ---
PT LOOKS LIKE IN DISTRESS, SOB, FIRST REFUSED USING OF BIPAP, HE WANTS ONLY HHNTX.PT BS WERE NOT IMPROVED, NO BS RISE ANFD EXPLAIN THAT HE NEEDS BIPAP. PLACED PT IN BIPAP, HE WANTS MORE PRESSURE, HE SAID THAT HE CANT BREATH, AN INCREASED BIPAP 14/5.CALLED FOR TOMMY, RN GAVE HIM, AND MALAIKA AT BED SIDE AND HR IS STEEL TACHYCARDIA.
[2016-05-22] MEDS ORDERED: FUROSEMIDE 40 MG/4 ML VIAL IVP ONE (19:29)
[2016-05-22] MEDS ORDERED: MAG SULF 2000 MG/WATER PREMIX 50 ML IV ONE (19:30)
[2016-05-22] MEDS ORDERED: LACTULOSE 20 GM/30 ML UDC PO SCH (19:40)
--- NOTE | 2016-05-22 20:00 | NUR ---
PATIENT HAD A BLACKED COLORED LOOSE STOOL, STEPHANIE CARE PROVIDED, POSITION CHANGED FOR OFF LOAD PRESSURE, WILL CONTINUE TO MONITOR.
--- NOTE | 2016-05-22 21:00 | NUR ---
SCHEDULED MEDICATION GIVEN, PATIENT TOLERATED WELL. PATIENT HAD ANOTHER BLACK COLORED LOOSE STOOL, STEPHANIE CARE PROVIDED.
[2016-05-22] MEDS: DEXT 5% /NACL 0.9% 1,000 ML IV SCH (21:50)
--- NOTE | 2016-05-22 22:15 | NUR ---
4 TH PACK OF BLOOD STARTED, NO FEVER, NO S/S OF DISTRESS, PATIENT TOLERATED WELL. PATIENT HAD AN OTHER BLACKED LOOSE STOOL, STEPHANIE CARE PROVIDED, POSITION CHANGED FOR OFF LOAD PRESSURE.
[2016-05-23] VITALS (45 sets, daily range): BP systolic 78–137; BP diastolic 26–101
[2016-05-23] MEDS: DEXT 5% /NACL 0.9% 1,000 ML IV SCH ×2 (00:15→08:28)
--- NOTE | 2016-05-23 00:15 | NUR ---
BLOOD TRANSFUSION COMPLETED, PATIENT TOLERATED WELL, NO ADVERSE REACTION NOTED. PATIENT HAS ANOTHER BLACK COLORED LOOSE STOOL, STEPHANIE CARE PROVIDED, POSITION CHANGED FOR OFF LOAD PRESSURE.
[2016-05-23] MEDS: SUCRALFATE 1 GM TAB PO SCH ×5 (00:52→23:47)
--- NOTE | 2016-05-23 02:00 | NUR ---
POSITION CHANGED FOR OFF LOAD PRESSURE, C/O NAUSEA, ZOFRAN GIVEN ORDERED.
[2016-05-23] MEDS: ONDANSETRON 4 MG/2 ML VIAL IVP PRN ×2 (02:57→07:04)
--- NOTE | 2016-05-23 03:15 | NUR ---
BLACK COLORED LOOSE STOOL NOTED, STEPHANIE CARE PROVIDED.
[2016-05-23] MEDS: ALBUTEROL 0.083% 2.5 MG/3 ML NEBU INH SCH ×6 (03:56→23:46)
--- NOTE | 2016-05-23 04:00 | NUR ---
POSITION CHANGED FOR OFF LOAD PRESSURE, BLACK COLORED LOOSE STOOL NOTED, STEPHANIE CARE PROVIDED.
[2016-05-23] MEDS: methylPREDNISolone SS 40 MG/ML VIAL IVP SCH ×2 (05:02→13:50)
--- NOTE | 2016-05-23 06:00 | NUR ---
BLACK COLORED LOOSE STOOL HAS BEEN GOING ON EVERY 10 TO 15 MINS SINCE 0500, ALSO NAUSEA NOTED, PATIENT IS GOING TO HAVE EGD IN THE MORNING. PATIENT REFUSED AM CARE, CLEAN GOWN AND AMADA CHANGED. CHARGE NURSE GEORGE AWARE, WILL CONTINUE TO MONITOR.
--- NOTE | 2016-05-23 06:15 | NUR ---
CRITICAL LAB VALUE OF BUN 87 NOTED, REQUESTED FOR REDRAW THE BUN VALUE DUE TO YESTERDAY WAS 13. WILL CONTACT MD LATER AFTER OBTAIN THE REPEAT VALUE. CHARGE NURSE GEORGE AWARE.
--- NOTE | 2016-05-23 06:35 | NUR ---
after repeat for bun test dental laboratory supervisor called result 86 page change admissions rn, waiting for call back
--- NOTE | 2016-05-23 06:50 | NUR ---
PATIENT HAD TWO TIMES BLACK COLORED LOOSE STOOL AFTER 0600, STEPHANIE CARE PROVIDED. WILL ENDORSE TO AM SHIFT NURSE FOR CONTINUE OF CARE.
--- NOTE | 2016-05-23 07:16 | NUR ---
DR PENA NOTIFIED BUN 87 AND REPEAT 86 NO ORDER.
--- NOTE | 2016-05-23 07:25 | NUR ---
REPORT GIVEN TO MIAH LEWIS AT BEDSIDE FOR CONTINUE OF CARE.
--- NOTE | 2016-05-23 07:26 | NUR ---
RECEIVED REPORT FROM MIAH CULVER. PT IS LYING ON BED, AAO X4, IV ON RIGHT AC 18G PATENT AND INTACT INFUSING D5NS @ 100 ML/HR, RIGHT FA 18G PATENT AND INTACT INFUSING PANTOPRAZOLE @ 10ML/HR, SURGICAL WOUND ON THE RIGHT GROIN CRISTI WITH NO DRAINAGE NOTED, SACRAL AREA BLANCHABLE REDNESS NOTED,ST ON MONITOR, PT IS ON BIPAP S/T SETTINGS OF 14/5, RATE OF 12 WITH FIO2 OF 30%, WHEEZING LUNG SOUNDS AUSCULTATED, ACTIVE BOWEL SOUND AUSCULTATED, ABLE TO REPOSITION SELF, ABLE TO MOVE ALL EXTREMITIES, DISCUSSED PLAN OF CARE, PT VERBALIZED UNDERSTANDING, SAFETY/FALL, ASPIRATION PRECAUTION ENFORCED, CALL LIGHT WITHIN REACH, WILL CONTINUE TO MONITOR.
--- NOTE | 2016-05-23 07:32 | NUR ---
RECEIVED PT ON BIPAP WITH PROTECTA-GEL UNDER MASK. SETTINGS 14/5, R12 AND FIO2 30%. B.S DIMINISHED BILATERALLY. BIPAP ALARMS ARE ON AND FUNCTIONING. BIPAP IS PLUGGED INTO RED OUTLET WITH AMBU BAG AT BEDSIDE. WILL CONTINUE TO MONITOR.
[2016-05-23] MEDS: PANTOPRAZOLE 80 MG in NACL 0.9% 100 ML IVP SCH (07:48)
--- NOTE | 2016-05-23 08:10 | NUR ---
SPOKE TO DR. MEJIA AND UPDATED PT'S CONDITION, RECEIVED VERBAL ORDER TO CALL DR. PRYOR, INFORMED PT'S BUN OF 87. NO NEW ORDERS RECEIVED.
--- NOTE | 2016-05-23 08:12 | NUR ---
TORI, PT'S SIGNIFICANT OTHER AT BEDSIDE, UPDATED PT'S CONDITION, QUESTIONS ANSWERED.
--- NOTE | 2016-05-23 08:20 | NUR ---
SPOKE TO DR. PRYOR REGARDING PT GETTING INTUBATED FOR EGD PROCEDURE, DR PRYOR STATED THAT HE WILL BE HERE TO SEE THE PT IN THE AFTERNOON. CHARGE NURSED MADE AWARE.
--- NOTE | 2016-05-23 08:40 | NUR ---
SPOKE TO THE LONG TERM CARE SOCIAL WORKER REGARDING PT GETTING INTUBATED BY ER DOCTOR, LONG TERM CARE SOCIAL WORKER STATED THAT ER DOCTOR CAN ONLY INTUBATE PTS DURING EMERGENCY SITUATIONS AND OR CAN INTUBATE THE PT RIGHT BEFORE THE EGD PROCEDURE.
[2016-05-23] MEDS: ALPRAZolam 0.5 MG TAB PO SCH ×2 (09:00→20:53)
[2016-05-23] MEDS: amLODIPine 5 MG TAB PO SCH (09:00)
[2016-05-23] MEDS: LOSARTAN 50 MG TAB PO SCH (09:00)
[2016-05-23] MEDS: [UNRECOGNIZED DRUG - OTHER] INH SCH ×2 (09:00→10:01)
[2016-05-23] MEDS: metroNIDAZOLE 500 MG TAB PO SCH (09:00)
[2016-05-23] MEDS: HYDROCHLOROTHIAZIDE 25 MG TAB PO SCH (09:00)
[2016-05-23] MEDS: DOCUSATE SODIUM 100 MG GELCAP PO SCH (09:00)
[2016-05-23] MEDS: LEVOFLOXACIN 750 MG TAB PO SCH (09:00)
--- NOTE | 2016-05-23 10:05 | NUR ---
PT REQUESTED TO TAKE BIPAP OFF STATING HE NEEDS A BREAK. PT PLACED ON 3L NASAL CANNULA. SPO2 99%. PT REMAINS TACHYPNEIC, BUT NOT IN ANY DISTRESS AT THIS TIME. WILL MONITOR CLOSELY.
--- NOTE | 2016-05-23 10:07 | NUR ---
RT AT BEDSIDE WORKING ON THE PT, PT IS RESTING ON BED, ABLE TO MAKE NEEDS KNOW, ALL NEEDS MET AT THIS TIME, CALL LIGHT WITHIN REACH, WILL CONTINUE TO MONITOR.
--- NOTE | 2016-05-23 10:14 | NUR ---
SPOKE TO DR. MEJIA AND INFORMED REGARDING PT WILL BE INTUBATED IN O.R. BEFORE EGD PROCEDURE.
--- NOTE | 2016-05-23 11:30 | NUR ---
SPOKE TO DR. MEJIA, NEW ORDERS RECEIVED, WILL CARRY OUT NEW ORDERS.
--- NOTE | 2016-05-23 11:53 | NUR ---
PT REFUSED FAULKNER CATHETER, EXPLAINED THE REASON FOR PUTTING FAULKNER CATH IN PLACE, PT CONTINUE TO REFUSED, PT STATED THAT HE URINATED THIS MORNING, WILL MONITOR PT OUTPUT.
--- NOTE | 2016-05-23 12:15 | NUR ---
PT HAD LIQUID DARK MODERATE BOWEL MOVEMENT, PT KEPT CLEAN AND DRY. WILL CONTINUE TO MONITOR.
--- NOTE | 2016-05-23 12:16 | NUR ---
SPOKE TO DR. PRYOR, HE STATED HE WILL INTUBATE THE PT AT 1400.
--- NOTE | 2016-05-23 14:00 | NUR ---
DR. PRYOR INTUBATED THE PT.
[2016-05-23] MEDS ORDERED: LORazepam 2 MG/ML VIAL ONE (14:05)
--- NOTE | 2016-05-23 14:08 | NUR ---
PT INTUBATED WITH SIZE 7.5 ETT SECURE @24 LIP. PT PLACED ON VENT WITH SETTINGS AC 14, VT 500, PEEP 5 AND FIO2 35%. VENT ALARMS ARE ON AND FUNCTIONING. VENT IS PLUGGED INTO RED OUTLET WITH AMBU BAG PRESENT AT BEDSIDE. WILL CONTINUE TO MONITOR.
[2016-05-23] MEDS ORDERED: LORazepam 2 MG/ML VIAL IVP SCH (14:15)
[2016-05-23] MEDS ORDERED: ETOMIDATE 20 MG/10 ML VIAL IVP ONE (14:20)
[2016-05-23] MEDS ORDERED: ROCURONIUM 50 MG/5 ML VIAL IV ONE (14:20)
--- NOTE | 2016-05-23 14:20 | NUR ---
CM NOTE CONCURRENT REVIEW SENT TO [facility] FA[facility]# [phone] ATTN; TRA MOSS PH# [phone]
[2016-05-23] MEDS ORDERED: fentaNYL 0.05 MG/ML VIAL ONE (14:23)
[2016-05-23] MEDS ORDERED: MIDAZOLAM 2 MG/2 ML VIAL ONE (14:23)
[2016-05-23] MEDS ORDERED: diphenhydrAMINE 50 MG/ML VIAL ONE (14:23)
--- NOTE | 2016-05-23 14:48 | NUR ---
DR. Bina MEJIA AT BEDSIDE DOING EGD.
[2016-05-23] MEDS ORDERED: AZITHROMYCIN 250 MG in DEXTROSE 5% 250 ML IV SCH (15:00)
[2016-05-23] MEDS: POTASSIUM CHL 10 MEQ/D5-1/2NS 1,000 ML IV SCH (15:16)
[2016-05-23] MEDS ORDERED: fentaNYL 0.05 MG/ML VIAL IVP ONE (15:20)
[2016-05-23] MEDS ORDERED: GLUCAGON 1 MG VIAL IVP ONE (15:20)
[2016-05-23] MEDS ORDERED: MIDAZOLAM 2 MG/2 ML VIAL IVP ONE (15:20)
[2016-05-23] MEDS ORDERED: GLUCAGON 1 MG VIAL ONE ×2 (15:28→15:58)
--- NOTE | 2016-05-23 15:45 | NUR ---
CONSENT FOR COLONOSCOPY SIGNED BY PT'S , TORI SCHUSTER. ALL QUESTIONS ANSWERED. CONSENT PLACED IN PT'S CHART.
--- NOTE | 2016-05-23 15:49 | NUR ---
ABG RESULTS GIVEN TO , NEW VENT SETTINGS REQUESTED BY PHYSICIAN. VENT SETTINGS AC 12, VT 400, PEEP 5 AND FIO2 28%. NURSE KATEY MONCADA. Addendum: 05/23/16 at 1607 by Johnathan Keene RT PT REMAINS ON AC 14, VT 500, PEEP 5 AND FIO2 28%. WAITING FOR PHYSICIAN TO CALL BACK TO REVERIFY ORDERS.
[2016-05-23] MEDS: PROPOFOL 1000 MG/100 ML PREMIX 100 ML IV PRN ×3 (16:20→17:03)
--- NOTE | 2016-05-23 16:20 | NUR ---
DR.KHORRAMI SHAW FOR ABG RESULTS AND VENT SETTINGS CLARIFICATION.
--- NOTE | 2016-05-23 16:35 | NUR ---
DECREASED PROPOFOL DRIP TO 5MCG/KG/MIN.
--- NOTE | 2016-05-23 16:45 | NUR ---
BLOOD TRANSFUSION STARTED.
--- NOTE | 2016-05-23 17:03 | NUR ---
ABG WAS DONE ON CURRENT VENT SETTINGS AC 14, VT 500, PEEP 5 FIO2 35%. ABG RESULTS GIVEN TO A SECOND TIME FOR VERIFICATION, PHYSICIAN MADE AWARE OF CRITICAL CO2 VALUE FOR SECOND TIME. NEW VENT SETTINGS ORDERED BY AC 12, VT 400, PEEP 5 AND FIO2 28%.
--- NOTE | 2016-05-23 17:03 | NUR ---
PROPOFOL DRIP INCREASED TO 10MCG/KG/MIN.
--- NOTE | 2016-05-23 17:33 | NUR ---
PT ON DOCUMENTED SETTINGS. VENT ALARMS REMAIN ON AND FUNCTIONING. ETT SECURE NO BITING OR KINKING OF ETT. PT IS NOT SOB AND NOT IN RESPIRATORY DISTRESS AT THIS TIME.
[2016-05-23] MEDS: LACTULOSE 20 GM/30 ML UDC PO SCH ×2 (17:37→20:51)
--- NOTE | 2016-05-23 17:50 | NUR ---
PT HAD SMALL AMOUNT OF DARK LIQUID STOOLS, CLEANED AND REPOSITIONED PT, ALL NEEDS MET AT THIS TIME. WILL CONTINUE TO MONITOR.
--- NOTE | 2016-05-23 18:15 | NUR ---
INCREASE PROPOFOL DRIP TO 20MCG/KG/MIN.
[2016-05-23] MEDS ORDERED: BOWEL EVACUANT DRINK 4,000 ML PDS PO SCH (19:00)
--- NOTE | 2016-05-23 19:12 | NUR ---
PT RECEIVED FROM [facility] ON NOTED VENT SETTINGS. PT SEDATED, HAS A #7.5 ETT SECURED AT 26 LIP LINE WITH AN ANCHOR FAST. BREATH SOUNDS DIMINISHED BILATERALLY, HHN TX GIVEN INLINE. PT LAVAGED AND SUCTIONED MOD AMT THICK PALE YELLOW SECRETIONS. NO ADVERSE EFFECTS NOTED. VENT ALARMS ON AND AUDIBLE. VENT PLUGGED INTO RED ELECTRICAL OUTLET. AMBU BAG AT [facility].
--- NOTE | 2016-05-23 19:18 | NUR ---
ENDORSED PT TO MIAH WORRELL AT BEDSIDE FOR CONTINUITY OF CARE. PT IS STABLE AT THIS TIME.
--- NOTE | 2016-05-23 19:20 | NUR ---
RECEIVED REPORT FROM DAY NURSE JOSHUA RN AT PATIENT BEDSIDE. PT IS SEDATED WITH PROPOFOL AND IS ETT TO VENT WITH CURRENT SETTINGS AT FIO2 28%, TV 400, RESP 12, PEEP 5 WITH NO S/S OF RESP DISTRESS AT THIS TIME. SUPERVISOR MOLD SHOP SHOW ST AT THIS TIME. PT HAS NGT IN LEFT NARE NPO EXCEPT FOR MEDS. PT HAS IV SITE IN RIGHT AC #18 CURRENTLY RUNNING 1 UNIT OF PRBC AND RIGHT FA#18 RUNNING PROPOFOL DRIP AT 20MCG/KG/MIN. CURRENT RASS IS -3. PT SKIN HAS A RIGHT GROIN INGUINAL SURGERY INCISION WITH BHARAT. PT BED IS LOW. HOB UP. SAFETY PRECAUTIONS MAINTAINED. WILL CONTINUE TO MONITOR CLOSELY.
--- NOTE | 2016-05-23 20:00 | NUR ---
STARTED 2ND UNIT OF PRBC AT THIS TIME.
--- NOTE | 2016-05-23 20:15 | NUR ---
PT HAD LARGE AMOUNT OF LOOSE BLACK BM. PT CLEANED. LINEN CHANGED. PATIENT REPOSITIONED. VAP ORAL KIT GIVEN. WILL CONTINUE TO MONITOR
[2016-05-23] MEDS: PANTOPRAZOLE 40 MG INJ VIAL IVP SCH (20:50)
[2016-05-23] MEDS: POTASSIUM CHLORIDE 20% 40 MEQ/15 ML UDC GT SCH (20:50)
--- NOTE | 2016-05-23 20:53 | NUR ---
PATIENT IS SEDATED ON PROPOFOL DRIP. HELD CURRENT DOSE OF ALPRAZOLAM. CHARGE NURSE MADE AWARE. WILL CONTINUE TO MONITOR PATIENT.
--- NOTE | 2016-05-23 21:35 | NUR ---
VENT CHECKED. PT LAVAGED AND SUCTIONED SM AMT THICK PALE YELLOW SECRETIONS. NO ADVERSE EFFECTS NOTED. PT APPEARS TO BE WAKING UP, MOVING IN BED AND REACHING FOR ETT. PIGMENT FURNACE TENDER, ALEX INFORMED, WILL INCREASE SEDATION.
--- NOTE | 2016-05-23 23:50 | NUR ---
PT HAD LARGE AMOUNT OF LIQUID BLACK STOOL. PATIENT CLEANED, LINEN CHANGED, PT REPOSITIONED,VAP ORAL CARE PROVIDED. NO SOB NOTED AT THIS TIME. WILL CONTINUE TO CLOSELY MONITOR.
[2016-05-24] VITALS (67 sets, daily range): BP systolic 85–132; BP diastolic 49–89
--- NOTE | 2016-05-24 00:10 | NUR ---
INSERTED FAULKNER CATHETER, JIM COLORED URINE DRAINING GRAVITY. PT EDUCATION WAS DONE.
[2016-05-24] MEDS: POTASSIUM CHL 10 MEQ/D5-1/2NS 1,000 ML IV SCH ×2 (00:20→11:01)
--- NOTE | 2016-05-24 01:07 | NUR ---
VENT CHECKED. PT SLEEPING, NO DISTRESS/SOB NOTED AT THIS TIME. BREATH SOUNDS DIMINISHED BILATERALLY, NO SUCTIONING NEEDED.
[2016-05-24] MEDS: PROPOFOL 1000 MG/100 ML PREMIX 100 ML IV PRN ×2 (01:35→10:10)
[2016-05-24] MEDS ORDERED: MAGNESIUM CITRATE 300 ML BTL PO SCH (02:00)
[2016-05-24] MEDS: ALBUTEROL 0.083% 2.5 MG/3 ML NEBU INH SCH ×6 (03:28→23:00)
--- NOTE | 2016-05-24 03:41 | NUR ---
VENT CHECKED. HME CHANGED, ETT MOVED TO LEFT SIDE OF MOUTH WITH ANCHOR FAST. BS DIMINISHED BILATERALLY, HHN TX GIVEN INLINE. PT LAVAGED AND SUCTIONED SMALL AMT THIN WHITE SECRETIONS. NO ADVERSE EFFECTS NOTED.
--- NOTE | 2016-05-24 04:27 | NUR ---
MORNING CARE WAS DONE. LARGE BM WAS NOTED. PT CLEANED. REPOSITIONED THE PT. VAP ORAL CARE WAS DONE. NO S/S OF RESPIRATORY DISTRESS/DISCOMFORT NOTED.
--- NOTE | 2016-05-24 05:24 | NUR ---
VENT CHECKED. PT ASLEEP, NO DISTRESS/SOB NOTED AT THIS TIME. NO CHANGES MADE.
[2016-05-24] MEDS: SUCRALFATE 1 GM TAB PO SCH ×3 (06:10→17:49)
--- NOTE | 2016-05-24 06:10 | NUR ---
PT VS INCREASING. FLACC OF 5 NOTED AT THIS TIME. PT WAS MEDICATED ORDERED PRN FOR PAIN.
--- NOTE | 2016-05-24 06:51 | NUR ---
PT IS SLEEPING. NO S/S OF RESPIRATORY DISTRESS/DISCOMFORT. SAFETY MEASURES MAINTAINED. ALL NEEDS MET.
--- NOTE | 2016-05-24 07:08 | NUR ---
ENDORSED PT TO AM NURSE MIAH LEWIS. PT IS IN STABLE CONDITION.
--- NOTE | 2016-05-24 07:09 | NUR ---
RECEIVED REPORT FROM VIJAYA RN. PT ORALLY INTUBATED TO VENT WITH THE SETTINGS OF FIO2= 28% TIDAL VOLUME 400 AC RATE OF 12 PEEP OF 5, SEDATED WITH PROPOFOL DRIP AT 30 MCG/KG/MIN WITH RASS -3. RT AT BEDSIDE GIVING BREATHING TX, MONITOR SHOWS SR-ST, ABDOMEN SOFT, NPO EXCEPT MEDS FOR COLONOSCOPY AT 1100, NG TUBE TO LEFT NARE, RECTAL BAG IN PLACE DRAINING BLACK LIQUID STOOLS, FAULKNER CATHETER IN PLACE DRAINING YELLOW JIM URINE, PT IS ABLE TO MOVE ALL EXTREMITIES, PT HAS AN INCISION WITH BHARAT ON RIGHT GROIN, IV ON RIGHT AC 18G PATENT AND INTACT INFUSING D5 1/2NS WITH 10 MEQ KCL AT 100ML/HR, RIGHT FOREARM 18G PATENT AND INTACT INFUSING PROPOFOL DRIP AT 30 MCG/KG/MIN, NO S/S OF RESPIRATORY DISTRESS OR DISCOMFORT NOTED, SAFETY/FALL/ASPIRATION PRECAUTION ENFORCED, WILL CONTINUE TO MONITOR CLOSELY.
--- NOTE | 2016-05-24 07:13 | NUR ---
RECEIVED PT STABLE ON VENT AT DOCUMENTED SETTINGS, NO RESP DISTRESS OR SOB NOTED, TX GIVEN, TOLERATED WELL. SIZE 7.5 ETT SECURED AT 26 CM AT THE LIP, VENT PLUGGED INTO RED OUTLET, AMBU BAG AT [facility], SXN SMALL THIN CLEAR SECRETIONS, BS DIMINISHED, WILL CONTINUE TO MONITOR.
--- NOTE | 2016-05-24 08:15 | NUR ---
DECREASED PROPOFOL DRIP TO 25MCG/KG/MIN.
[2016-05-24] MEDS ORDERED: MAGNESIUM CITRATE 300 ML BTL NG SCH (08:17)
[2016-05-24] MEDS ORDERED: POTASSIUM CHLORIDE 20% 40 MEQ/15 ML UDC NG SCH (08:18)
--- NOTE | 2016-05-24 08:18 | NUR ---
PT'S TORI AT BEDSIDE, UPDATED PT'S CONDITION, QUESTIONS ANSWERED.
[2016-05-24] MEDS: PANTOPRAZOLE 40 MG INJ VIAL IVP SCH ×2 (08:55→20:59)
[2016-05-24] MEDS: LACTULOSE 20 GM/30 ML UDC PO SCH (08:55)
--- NOTE | 2016-05-24 08:55 | NUR ---
DUE MEDS GIVEN, PT TOLERATED WELL, ALPRAZOLAM NOT GIVEN, PT IS SEDATED BY PROPOFOL DRIP 25MCG/KG/MIN. WILL CONTINUE TO MONITOR.
[2016-05-24] MEDS: amLODIPine 5 MG TAB PO SCH (09:00)
[2016-05-24] MEDS: ALPRAZolam 0.5 MG TAB PO SCH ×2 (09:00→20:59)
[2016-05-24] MEDS ORDERED: methylPREDNISolone SS 40 MG/ML VIAL IVP SCH (09:00)
[2016-05-24] MEDS: LEVOFLOXACIN 750 MG TAB PO SCH ×2 (09:00→14:36)
[2016-05-24] MEDS: POTASSIUM CHLORIDE 20% 40 MEQ/15 ML UDC GT SCH ×2 (09:00→21:00)
[2016-05-24] MEDS: [UNRECOGNIZED DRUG - OTHER] INH SCH (09:00)
--- NOTE | 2016-05-24 09:00 | NUR ---
DAILY DPI SPIRIVA NOT ADMINISTERED BECAUSE PT IS CURRENTLY INTUBATED. WILL RESUME SCHEDULE TX ONCE EXTUBATED
--- NOTE | 2016-05-24 09:48 | NUR ---
CM NOTE CONCURRENT REVIEW [place] [facility] [place] [phone] ATTN: TRA Whitman PH# [phone]
--- NOTE | 2016-05-24 10:10 | NUR ---
INCREASED PROPOFOL DRIP TO 30 MCG/KG/MIN.
[2016-05-24] MEDS ORDERED: fentaNYL 0.05 MG/ML VIAL ONE (10:48)
[2016-05-24] MEDS ORDERED: MIDAZOLAM 2 MG/2 ML VIAL ONE (10:48)
[2016-05-24] MEDS ORDERED: diphenhydrAMINE 50 MG/ML VIAL ONE (10:48)
--- NOTE | 2016-05-24 11:02 | NUR ---
SPOKE TO MEIR FROM O.R., STATED THAT COLONOSCOPY PROCEDURE WILL BE DONE AT 11:45.
--- NOTE | 2016-05-24 11:50 | NUR ---
RECTAL BAG REMOVED PRIOR TO COLONOSCOPY PROCEDURE. EMPTIED 600ML OF GREENISH BLACK OF LIQUID STOOL.
--- NOTE | 2016-05-24 12:01 | NUR ---
INCREASED PROPOFOL DRIP TO 50MCG/KG/MIN PER DR. MEJIA PRIOR TO COLONOSCOPY PROCEDURE.
--- NOTE | 2016-05-24 12:04 | NUR ---
DR. MEJIA AT PT'S BEDSIDE DOING COLONOSCOPY.
--- NOTE | 2016-05-24 12:35 | NUR ---
AFTER COLONOSCOPY PROCEDURE, PROPOFOL DECREASED TO 30MCG/KG/MIN.
--- NOTE | 2016-05-24 12:40 | NUR ---
DR. PRYOR IS MAKING ROUNDS, PLAN TO WEAN AND EXTUBATE PT TODAY, VERBAL ORDER RECEIVED TO STOP PROPOFOL DRIP COMPLETELY. RT AT BEDSIDE AND INFORMED REGARDING WEANING AND EXTUBATING PT.
--- NOTE | 2016-05-24 13:05 | NUR ---
PT PLACED ONTO CPAP MODE C PRESSURE SUPPORT 6 CMH20 FIO2 28% PER WEAN ORDER PER JOSHUA BOSE RN AWARE. ABG POST 1 HOUR TO FOLLOW.
--- NOTE | 2016-05-24 13:07 | NUR ---
PT IS ON CPAP AT THIS TIME.
--- NOTE | 2016-05-24 14:15 | NUR ---
PT EXTUBATED PER ABG RESULTS AND DR PRYOR ORDER, PT TOLERATED WELL, PLACED ON 2LPM NC SPO2 99%, BP 134/80. JOSHUA RN AT BEDSIDE FOR EXTUBATION. WILL CONTINUE TO MONITOR.
--- NOTE | 2016-05-24 14:30 | NUR ---
ROUNDED ON PT AFTER EXTUBATED, AAO X4, REORIENTED PT TO SURROUNDINGS, CLEAR SPEECH NOTED ASKING FOR WATER, O2 2L NC IN PLACE WITH O2 SAT OF 100%, NO S/S OF RESPIRATORY DISTRESS OR DISCOMFORT NOTED, ST ON MONITOR. WILL CONTINUE TO MONITOR.
--- NOTE | 2016-05-24 15:11 | NUR ---
IS PRESENT AT BEDSIDE TALKING TO PT, ASKING FOR FOOD, NO S/S OF RESPIRATORY DISTRESS NOTED, WILL CONTINUE TO MONITOR.
--- NOTE | 2016-05-24 16:00 | NUR ---
REMOVED NG TUBE, PT TOLERATED WELL. ALL NEEDS MET AT THIS TIME, AT BEDSIDE, WILL CONTINUE TO MONITOR.
--- NOTE | 2016-05-24 17:17 | NUR ---
CLEANED AND REPOSITIONED PT, IV TUBING ON RIGHT FOREARM CHANGED, PT TOLERATED WELL, NO S/S OF RESPIRATORY DISTRESS OR DISCOMFORT NOTED, WILL CONTINUE TO MONITOR.
--- NOTE | 2016-05-24 17:46 | NUR ---
DINNER SERVED, PT HAS GOOD APPETITE, NO S/S OF RESPIRATORY DISTRESS OR DISCOMFORT NOTED, ALL NEEDS MET AT THIS TIME, WILL CONTINUE TO MONITOR.
--- NOTE | 2016-05-24 19:14 | NUR ---
RECEIVED PATIENT REPORT FROM DAY SHIFT MIAH ARNOLD. ON LEATHER CRAFTER, SINUS RHYTHM. FULL CODE. AWAKE, ALERT, ORIENTED. OXYGEN AT 2LPM/NASAL CANNULA. PERIPHERAL IV ON RIGHT ARM G18 X2. RUNNING IVF OF D5 1/2 NS WITH 10 MEQ KCL AT 100ML/HR. WITH FAULKNER CATHETER TO URINE BAG DRAINING TO YELLOWISH URINE OUTPUT. WITH SACRAL REDNESS. ON FULL LIQUID DIET. WITH SCATTERED BRUISES ON BOTH ARMS. WITH RIGHT GROIN INCISION WITH BHARAT, INTACT.
--- NOTE | 2016-05-24 19:14 | NUR ---
ENDORSED PT TO MIAH BOND FOR CONTINUITY OF CARE AT BEDSIDE, PT IS STABLE AT THIS TIME WATCHING TV.
--- NOTE | 2016-05-24 21:00 | NUR ---
DUE MEDS GIVEN AND INDICATIONS WELL EXPLAINED. PATIENT COMPLAINED THAT KCL ORAL MED TASTE BAD AND NURSES ARE TRICKING HIM TO TAKE MEDICINE AND VERBALIZED IT'S A "CRAP". KCL INDICATIONS, ACTIONS AND EFFECTS EXPLAINED FURTHER TO THE PATIENT. PATIENT COMPLAINED THAT HE IS TIED UP. WE EXPLAINED THAT HE IS NOT TIED UP AND HE CAN MOVE FREELY BY HIMSELF. HE REFUSED TO BE TURNED OR CHANGE POSITION OR CHANGE THE LINENS OR GOWN. EXPLAINED THAT HE NEEDS TO CHANGE POSITIONS TO PREVENT BEDSORES. HE STILL REFUSED. DUE XANAX 0.5MG PO GIVEN TO HELP THE PATIENT CALM DOWN AND SLEEP. CYBER FORENSICS ANALYST ALEX GORDILLO WITNESS AT THE BEDSIDE.
[2016-05-25] VITALS (12 sets, daily range): BP systolic 103–140; BP diastolic 56–84
--- NOTE | 2016-05-25 | NUR ---
SLEEPING, NO SIGNS OF DISTRESS OR DISCOMFORT AT THIS MOMENT. VITALLY STABLE. Addendum: 05/25/16 at 0105 by Brenda Estes RN PATIENT VERBALIZED HE DOESN'T WANT TO BE BOTHERED WHEN HE'S SLEEPING. DUE SUCRALFATE NOT GIVEN. SLEEPING AT THIS TIME.
--- NOTE | 2016-05-25 02:14 | NUR ---
RESTING AT THIS TIME. NO SIGNS OF DISCOMFORT OR DISTRESS AT THIS MOMENT. BED IN LOW POSITION. ALL ALARMS CHECKED. VITALLY STABLE. Addendum: 05/25/16 at 0217 by Brenda Estes RN OFFLOAD PRESSURE AREAS. CONTINUE TO MONITOR.
[2016-05-25] MEDS: POTASSIUM CHL 10 MEQ/D5-1/2NS 1,000 ML IV SCH ×2 (03:16→16:49)
[2016-05-25] MEDS: ALBUTEROL 0.083% 2.5 MG/3 ML NEBU INH SCH ×6 (03:38→22:50)
--- NOTE | 2016-05-25 04:00 | NUR ---
AM CARE GIVEN. GARGLED WITH MOUTHWASH. ALL LINENS AND GOWN CHANGED. STEPHANIE-CARE AND CATHETER CARE GIVEN. TURNED SIDE TO SIDE. REPOSITIONED PATIENT. AWAKE, ALERT, ORIENTED. Addendum: 05/25/16 at 0653 by Brenda Estes RN HAD A BOWEL MOVEMENT. DARK GREEN, WATERY STOOL. BUTTOCKS AND STEPHANIE-AREA CLEANED AND SKIN KEPT DRY.
[2016-05-25] MEDS: SUCRALFATE 1 GM TAB PO SCH ×5 (06:07→23:07)
--- NOTE | 2016-05-25 06:15 | NUR ---
RECEIVED A PHONE CALL FROM BROTHER RENZO. PATIENT REFUSED TO TALK AND SAID HE WANTED TO REST AND SLEEP AND HE'S TIRED VERBALIZED. BROTHER RENZO INFORMED. REPOSITIONED PATIENT. Addendum: 05/25/16 at 0654 by Brenda Estes RN NO BLACK TARRY STOOL OR ANY ACTIVE BLEEDING NOTED THE WHOLE SHIFT.
[2016-05-25] MEDS: [UNRECOGNIZED DRUG - OTHER] INH SCH (06:57)
--- NOTE | 2016-05-25 07:14 | NUR ---
PATIENT REPORT GIVEN TO DAY SHIFT RN TRA. VITALLY STABLE. NO SIGNS OF DISTRESS OR DISCOMFORT AT THIS TIME.
--- NOTE | 2016-05-25 07:35 | NUR ---
RECEIVED BEDSIDE REPORT FROM VENEER SAWYER VARUN DOOLEY. PT IS AWAKE, ALERT AND ORIENTATED. BEDSIDE MONITOR SHOWS SR. NO S/S OF RESPIRATORY DISTRESS NOTED. O2 NC 2L/MIN. IV TO RIGHT AC RUNNING D5 1/2 NS WITH 10 MEQ KCL @ 100 ML/HR. SITE INTACT AND PATENT. ABDOMEN SOFT WITH ACTIVE BOWEL SOUNDS. FAULKNER CATH IN PLACE WITH SMALL AMOUNT OF CLEAR YELLOW URINE.PT IS ABLE TO MOVE ALL HIS EXTREMITIES. REDNESS TO SACRAL AREA NOTED. SCATTERED BRUISES TO BOTH ARMS. RIGHT GROIN INCISION WITH BHARAT, INTACT. POC DISCUSSED WITH PT, PT VERBALIZED UNDERSTANDING. SIDE RAILS UP X2 WITH LOW BED POSITION, HOB ELEVATED 30 DEGREES, WILL CONTINUE TO MONITOR.
--- NOTE | 2016-05-25 07:50 | NUR ---
DR.SHAH MelloWAS NOTIFIED OF LOW HGB 7.4 ,HCT 22.8 AND PATIENT JUST HAD SMALL AMOUNT OF LIQUID GREENISH-BLACK STOOL. ORDER TO TRANSFUSE ONE UNIT OF PACKED RED BLOOD CELLS. ORDER IS CARRIED OUT. PATIENT WAS INFORMED OF BLOOD TRANSFUSION.
--- NOTE | 2016-05-25 08:15 | NUR ---
PT'S PRESENT AT BEDSIDE, UPDATED PT'S CONDITION AND QUESTIONS ANSWERED.
[2016-05-25] MEDS ORDERED: LACTULOSE 20 GM/30 ML UDC PO SCH (09:00)
--- NOTE | 2016-05-25 09:33 | NUR ---
CM NOTE CONCURRENT REVIEW SENT TO [facility] – [place] FAX# [phone] ATTN: TRA Whitman PH# [phone]
[2016-05-25] MEDS: ALPRAZolam 0.5 MG TAB PO SCH ×2 (09:41→20:49)
[2016-05-25] MEDS: PANTOPRAZOLE 40 MG INJ VIAL IVP SCH ×2 (09:41→20:50)
[2016-05-25] MEDS ORDERED: methylPREDNISolone SS 40 MG/ML VIAL IVP SCH (09:42)
[2016-05-25] MEDS: POTASSIUM CHLORIDE 20% 40 MEQ/15 ML UDC GT SCH (09:53)
--- NOTE | 2016-05-25 11:01 | NUR ---
SERVED PT BEDPAN, PT HAD MODERATE AMOUNT OF DARK GREENISH LIQUID STOOL. CLEANED PT. WILL CONTINUE TO MONITOR.
--- NOTE | 2016-05-25 12:30 | NUR ---
PT HAD SMALL AMOUNT OF LIQUID BLACK GREENISH STOOL, WILL CONTINUE TO MONITOR.
[2016-05-25] MEDS: FERROUS SULFATE 325 MG TABEC PO SCH ×2 (12:42→17:58)
--- NOTE | 2016-05-25 13:20 | NUR ---
PT IS AWAKE, ALERT, ORIENTATED. BLOOD PRESSURE WITHIN NORMAL .NO FEVER. IV SITE AT LEFT FOREARM SALINE LOCKED#18 WITH GOOD BLOOD RETURN. PT READY FOR BLOOD TRANSFUSION.
--- NOTE | 2016-05-25 13:45 | NUR ---
STARTED PT ON BLOOD TRANSFUSION AT 120ML/HR. WILL CONTINUE TO OBSERVE PT.
[2016-05-25] MEDS: IPRATROPIUM 0.02% 0.5 MG/2.5 ML NEBU INH SCH ×3 (14:42→21:00)
--- NOTE | 2016-05-25 16:00 | NUR ---
BLOOD TRANSFUSION IS COMPLETED. NO BLOOD TRANSFUSION REACTIONS NOTED. PT TOLERATED BLOOD TRANSFUSION VERY WELL.
--- NOTE | 2016-05-25 17:00 | NUR ---
REMOVED FAULKNER CATH, CATH INTACT, TOTAL OUTPUT 550ML. PT WAS ON BEDPAN,PT PASSES A LOT OF FLATUS WITH SMALL AMOUNT OF GREENISH BLACK STOOL, CLEANED PT.
[2016-05-25] MEDS ORDERED: HYDRAGUARD CREAM TP PRN (17:25)
[2016-05-25] MEDS ORDERED: MILD SOAP AND WATER TP PRN (17:25)
--- NOTE | 2016-05-25 18:03 | NUR ---
PT IS AWAKE, ALERT AND ORIENTED. NO S/S OF RESPIRATORY DISTRESS NOTED. HYDROGUARD APPLIED TO STEPHANIE AREA.
--- NOTE | 2016-05-25 19:10 | NUR ---
BEDSIDE REPORT GIVEN TO CHARGE NURSE PETER DOOLEY AND LUCERO DOOLEY. PT IN STABLE CONDITION.
--- NOTE | 2016-05-25 19:11 | NUR ---
RECEIVED REPORT FROM NURSE, MIAH DUTTA. PT IS AAOX4, ON BIPAP TREATMENT AT THIS TIME. PT HAS NO COMPLAIN OF PAIN. NO S/S OF RESPIRATORY DISTRESS/DISCOMFORT NOTED. HAS BHARAT TO THE RIGHT GROIN AREA. IV SITE TO LEFT FA # 18, PATENT AND INTACT. PLAN OF CARE DISCUSSED, VERBALIZED UNDERSTANDING. SAFETY MEASURES CHECKED, CALL LIGHT WITHIN REACH. WILL CONTINUE TO MONITOR. Addendum: 05/25/16 at 2033 by Royer Lozano RN CORRECTION FOR BIPAP TREATMENT. PT IS ON RESPIRATORY TREATMENT.
--- NOTE | 2016-05-25 20:50 | NUR ---
DUE MEDS GIVEN. MEDS INFORMATION WAS GIVEN, BENEFITS AND S/E, VERBALIZED UNDERSTANDING. ANSWERED ALL QUESTIONS. PT TOLERATED WELL.
--- NOTE | 2016-05-25 22:23 | NUR ---
PT IS AWAKE AND WATCHING TV ON HIS MONITOR. DENIES ANY PAIN. NO S/S OF RESPIRATORY DISTRESS/DISCOMFORT NOTED.
--- NOTE | 2016-05-25 23:10 | NUR ---
DUE MEDS GIVEN. MEDICATION INFORMATION WAS GIVEN, BENEFITS AND S/E, VERBALIZED UNDERSTANDING. PT TOLERATED WELL.
[2016-05-26] VITALS (10 sets, daily range): BP systolic 99–132; BP diastolic 60–74
--- NOTE | 2016-05-26 00:04 | NUR ---
PT IS SLEEPING. NO S/S OF RESPIRATORY DISTRESS/DISCOMFORT NOTED. SAFETY MEASURES CHECKED, CALL LIGHT WITHIN REACH.
[2016-05-26] MEDS: HYDRAGUARD CREAM TP SCH ×2 (01:14→14:48)
[2016-05-26] MEDS: MILD SOAP AND WATER TP SCH ×2 (01:15→14:48)
[2016-05-26] MEDS: POTASSIUM CHL 10 MEQ/D5-1/2NS 1,000 ML IV SCH ×2 (02:36→17:13)
[2016-05-26] MEDS: ALBUTEROL 0.083% 2.5 MG/3 ML NEBU INH SCH ×6 (03:03→22:57)
--- NOTE | 2016-05-26 03:11 | NUR ---
0304 PT REFUSED HHNTX. SAID HE WANTED TO SLEEP AND THAT HE WAS BREATHING WELL.
--- NOTE | 2016-05-26 04:50 | NUR ---
PT IS SLEEPING. NO S/S OF RESPIRATORY DISTRESS/DISCOMFORT NOTED.
[2016-05-26] MEDS: SUCRALFATE 1 GM TAB PO SCH ×4 (05:48→23:12)
--- NOTE | 2016-05-26 06:03 | NUR ---
MORNING CARE WAS DONE. PT REQUESTED A BEDPAN AND URINE OUTPUT OF 400ML WAS NOTED. ALL NEEDS MET AND ATTENDED.
[2016-05-26] MEDS: IPRATROPIUM 0.02% 0.5 MG/2.5 ML NEBU INH SCH ×4 (06:56→19:10)
--- NOTE | 2016-05-26 07:35 | NUR ---
RECEIVED REPORT FROM MIAH VAZQUEZ. PT SEEN AT BEDSIDE, AAOX4; NO S/S DISTRESS OR SOB NOTED, ON 2L O2 VIA NC. PT IS ON COAL HIKER RUNNING SINUS TACHY AT THIS TIME. PT HAS RIGHT FA 18G RUNNING IVF AT THIS TIME. IV IS PATENT AND INTACT. PT DENIES PAIN AT THIS TIME. BOWEL SOUNDS ACTIVE IN X4 QUADRANTS; ABD IS FIRM. NO C/O NAUSEA OR DIARRHEA AT THIS TIME. PT HAS RIGHT INGUINAL HERNIA REPAIR WITH BHARAT IN PLACE, CRISTI. ASSISTED PT WITH BREAKFAST TRAY AND SAT PT UPRIGHT TO EAT. SAFETY MEASURES CHECKED, CALL LIGHT LEFT AT BEDSIDE. WILL CONTINUE TO MONITOR.
[2016-05-26] MEDS: methylPREDNISolone SS 40 MG/ML VIAL IVP SCH (08:50)
[2016-05-26] MEDS: PANTOPRAZOLE 40 MG INJ VIAL IVP SCH ×2 (08:50→20:58)
[2016-05-26] MEDS: FERROUS SULFATE 325 MG TABEC PO SCH ×3 (08:51→17:13)
[2016-05-26] MEDS: ALPRAZolam 0.5 MG TAB PO SCH ×2 (08:51→20:55)
[2016-05-26] MEDS: POTASSIUM CHLORIDE 20% 40 MEQ/15 ML UDC GT SCH (08:51)
[2016-05-26] MEDS: LEVOFLOXACIN 500 MG TAB PO SCH (08:51)
[2016-05-26] MEDS: FOLIC ACID 1 MG TAB PO SCH (08:51)
--- NOTE | 2016-05-26 10:20 | NUR ---
PER MIAH VILLALTA, PT HAD MODERATE AMOUNT OF LOOSE, BROWN BM MIXED WITH URINE. SMALL,BLACK BM CHUNKS NOTED.
--- NOTE | 2016-05-26 10:40 | NUR ---
CM NOTE CONCURRENT REVIEW SENT TO [facility] [place] FAX# [phone] ATTN: TRA Whitman PH# [phone]
--- NOTE | 2016-05-26 10:45 | NUR ---
DR. PRYOR AT BEDSIDE TALKING TO PATIENT. UPDATED MD ON PATIENT CONDITION. PER MD, PT IS ABLE TO TRANSFER TO TELE. WILL FOLLOW UP WITH ORDERS.
--- NOTE | 2016-05-26 11:22 | NUR ---
PHYSICAL THERAPY WORKING WITH PATIENT AT THIS TIME.
--- NOTE | 2016-05-26 11:29 | NUR ---
PATIENT UP IN CHAIR HHN THERAPY GIVEN POST PHYSICAL THERAPY
--- NOTE | 2016-05-26 11:38 | NUR ---
PT SITTING ON CHAIR GETTING RT TREATMENT AT THIS TIME. NO S/S DISTRESS OR SOB. WILL CONTINUE TO MONITOR.
--- NOTE | 2016-05-26 11:56 | NUR ---
ASSISTED PT WITH LUNCH TRAY. ROUTINE MEDICATIONS ADMINISTERED WITH EDUCATION. PT VERBALIZED UNDERSTANDING. PT TOLERATED WELL. WILL CONTINUE TO MONITOR.
[2016-05-26] MEDS ORDERED: PROBIOTIC SCREEN 1 EA MISC MC PRN (13:35)
--- NOTE | 2016-05-26 13:50 | NUR ---
REPORT GIVEN TO BRAD RN. PT ATTACHED TO PORTABLE INVESTOR AND O2 TANK FOR TRANSFER TO TELEMETRY UNIT.
--- NOTE | 2016-05-26 13:51 | NUR ---
RECEIVED REPORT FROM SHARI IN THE ICU RE. PT TO BE TRANSFERRED. ROOM IS READY AND PREPPED. WILL BE WAITING FOR PT.
--- NOTE | 2016-05-26 14:00 | NUR ---
PT ARRIVED ON THE UNIT WITH THE ICU NURSES AT BEDSIDE. PT IS ALERT AND ORIENTED. PT IS WEARING A NC W/ O2 AT 2L. PT HAS AN IV ON R FA 18G D5 1/2 NS W/ MEQ KCL AT 40ML/HR. V/S: 98.2F, 106/66, 102 HR, 97% O2 SAT, 20 R; NO PAIN AT THIS TIME. NOTED THE 13 BHARAT IN THE R GROIN AREA. IT IS DRY AN INTACT, CRISTI. OTHERWISE, SKIN IS INTACT. SOME BRUISING IN THE ARMS FROM IV'S AND BLOOD DRAWS. PT'S BREATHING IS LABORED. BUT SATURATION IS FINE AT 2L NC. NO OTHER COMPLAINTS. WILL CONTINUE TO MONITOR PT.
--- NOTE | 2016-05-26 14:00 | NUR ---
PT TURNED AND REPOSITIONED FOR COMFORT. NO BM OR INCONTINENCE NOTED. Addendum: 05/26/16 at 1515 by Belkys Castellano RN WRONG PATIENT
--- NOTE | 2016-05-26 14:09 | NUR ---
05/26/16 RD FOLLOW UP COMPLETED PLEASE REFER TO NUTRITION PROGRESS NOTE UNDER CARE ACTIVITY FOR ESTIMATED NUTRITION NEEDS. RD RECOMMENDATIONS: 1. CONTINUE ON REGULAR DIET MEDICALLY APPROPRIATE AND TOLERATED BY PT. --NOTE PT CURRENTLY MEETING >100% OF ESTIMATED KCAL AND PROTEIN NEEDS (ADEQUATE) 2. RD WILL F/U 3-5 DAYS; MODERATE RISK DALJIT KOO, RD
--- NOTE | 2016-05-26 14:55 | NUR ---
SISTER, GRISEL, AT NURSING STATION TALKING TO RN'S; APPEARS UPSET BECAUSE PT WILL BE TRANSFERRED TO TELE. STATES THAT, "MY SISTER IS NOT STABLE. SHE'S BRAIN DAMAGED AND FOR ME, STABLE IS BEING ABLE TO SPEAK AND WALK LIKE SHE USED TO". GRISEL ALSO STATED THAT SHE WAS NOT ABLE TO RECEIVE THE PHONE CALL, "BECAUSE MY PHONE WAS AND THE SIGNAL WAS NOT WORKING FOR MY PHONE." DANIEL FROM [employer] NOTIFIED THAT GRISEL WOULD LIKE TO TALK TO THEM; DANIEL STATED SHE WILL TALK TO ODELL. Addendum: 05/26/16 at 1515 by Belkys Castellano RN WRONG PATIENT
--- NOTE | 2016-05-26 19:30 | NUR ---
ENDORSED PT TO THE CONCRETE PLANT LABORER NURSE AT BEDSIDE FOR CONTINUITY OF CARE. PT IS IN STABLE CONDITION. RT IS THERE GIVING HIS BREATHING TX.
--- NOTE | 2016-05-26 19:30 | NUR ---
RECEIVED PT AWAKE PRESENTLY GETTING BREATHING TX FROM ANDREW RT, NO SIGNS OF SOB, DENIES ANY PAIN, IVF INFUSING WELL, CALL LIGHT WITHIN REACH.
[2016-05-26] MEDS: SACCHAROMYCES 250 MG CAP PO SCH (20:55)
--- NOTE | 2016-05-26 21:00 | NUR ---
VOIDING FREELY PER URINAL, DUE MEDICATIONS ADMINISTERED, ALL NEEDS ATTENDED.
--- NOTE | 2016-05-26 23:45 | NUR ---
ASLEEP ON AND OFF, VITAL SIGNS STABLE, NO SOB NOTED, CONTINUE TO MONITOR CLOSELY.
[2016-05-27] VITALS: BP 110/65
[2016-05-27] MEDS: MILD SOAP AND WATER TP SCH ×2 (00:34→13:00)
[2016-05-27] MEDS: HYDRAGUARD CREAM TP SCH ×2 (00:34→13:00)
[2016-05-27] MEDS: ALBUTEROL 0.083% 2.5 MG/3 ML NEBU INH SCH ×4 (03:16→15:33)
--- NOTE | 2016-05-27 03:40 | NUR ---
JUST FINISHED GETTING BREATHING TX, VITAL SIGNS STABLE, NO SOB NOTED AND DENIES ANY PAIN, IVF INFUSING WELL, MONITORED CLOSELY.
[2016-05-27 04:00] VITALS: BP 130/75
[2016-05-27] MEDS: SUCRALFATE 1 GM TAB PO SCH ×3 (05:28→17:05)
--- NOTE | 2016-05-27 05:40 | NUR ---
DUE PO MEDICATION TAKEN, NO SOB NOTED, IVF INFUSING WELL.
[2016-05-27] MEDS: IPRATROPIUM 0.02% 0.5 MG/2.5 ML NEBU INH SCH ×3 (06:48→15:33)
--- NOTE | 2016-05-27 07:30 | NUR ---
PT AWAKE EATING BREAKFAST, REPORT GIVEN TO SANTOS RN FOR CONTINUITY OF CARE.
--- NOTE | 2016-05-27 07:31 | NUR ---
PT AWAKE ALERT AND ORIENTED X4. WITH O2 AT 2L/MIN VIA NC. NO SIGNS OF ACUTE DISTRESS. SKIN IS WARM AND DRY. NO SIGNS OF ANY BOWEL/BLADDER DISCOMFORT. DENIES OF ANY PAIN AT THIS TIME. ALL NEEDS ATTENDED, SAFETY PRECAUTIONS MAINTAINED. CALL LIGHT WITHIN REACH.
[2016-05-27 08:00] VITALS: BP 131/75
[2016-05-27] MEDS: ALPRAZolam 0.5 MG TAB PO SCH (08:35)
[2016-05-27] MEDS: LEVOFLOXACIN 500 MG TAB PO SCH (08:36)
[2016-05-27] MEDS: POTASSIUM CHLORIDE 20% 40 MEQ/15 ML UDC GT SCH (08:36)
[2016-05-27] MEDS: FOLIC ACID 1 MG TAB PO SCH (08:36)
[2016-05-27] MEDS: FERROUS SULFATE 325 MG TABEC PO SCH ×3 (08:36→17:05)
[2016-05-27] MEDS: PANTOPRAZOLE 40 MG INJ VIAL IVP SCH (08:36)
[2016-05-27] MEDS: SACCHAROMYCES 250 MG CAP PO SCH (08:36)
[2016-05-27] MEDS: methylPREDNISolone SS 40 MG/ML VIAL IVP SCH (08:37)
--- NOTE | 2016-05-27 09:24 | NUR ---
WAS SEEN BY DR. PRYOR, RECEIVED NEW ORDER. AUGUST D/C PT. TODAY. NOTED AND PT MADE AWARE. WILL CONSULT WITH SS FOR HOME O2 SETTING.
[2016-05-27] MEDS ORDERED: HYDROcodone/APAP 5/325 MG 1 TAB TAB PO PRN (09:25)
--- NOTE | 2016-05-27 09:30 | NUR ---
CLARIFICATION OF ORDER FROM DR. PRYOR, ARRANGE FOR SNF PLACEMENT WITH PT. NOTED AND CARRIED OUT.
--- NOTE | 2016-05-27 09:34 | NUR ---
CM NOTE CONCURRENT REVIEW AND ORDER FOR SNF SENT [place] [facility] [place] FAX# [phone] ATTN: TRA MOSS PH# [phone]
[2016-05-27 12:00] VITALS: BP 146/78
--- NOTE | 2016-05-27 13:18 | NUR ---
SS NOTE: [place] [facility] [place][phone][place] PT CAN GO TO ROOM 16C ANYTIME AFTER [address] TIMMY RUEDA. I SPOKE WITH PT'S SIGNIFICANT OTHER, TORI AND INFORMED HER OF THE ABOVE INFORMATION.
--- NOTE | 2016-05-27 13:34 | NUR ---
CM NOTE PER CM TRA OF [facility] [place] PH# [phone], AUTH# [id number] FOR ACCEPTING SNF AND AUTH# [id number] FOR [facility] [place] [facility]. SPOKE WITH LEONIDAS OF [facility] PH# [phone] TO SET UP PATIENT TRANSPORT. MANUFACTURING AREA MANAGER FROM [facility] WILL BE 1800 TIME TODAY BY ADITHYA ON 2L O2 VIA NC GOING TO [facility] [place] RM 16A, CONFIRMED FROM YOHANA SANCHEZ, ACCEPTING DR. TIMMY RUEDA. NURSE SANTOS EXT [phone] AWARE. Addendum: 05/27/16 at 1347 by Tatyana Madden CM [facility] PH# [phone]
[2016-05-27 16:00] VITALS: BP 131/81
--- NOTE | 2016-05-27 16:20 | NUR ---
CALLED [facility] AND SPOKE WITH KARISHMA CHARGE NURSE AND GAVE REPORT. ETA OF PICKUP FOR PT AT 1800 PER SS. PT MADE AWARE. EDUCATED ON CONTINUING PLAN OF CARE FOR PHYSICAL THERAPY AND MEDICAL TREATMENT. PT VERBALIZED UNDERSTANDING. CONTINUE TO MONITOR.
--- NOTE | 2016-05-27 18:04 | NUR ---
PT ALERT AND RESPONSIVE, NO SIGNS OF ACUTE DISTRESS. MAY D/C TO SNF ORDERED. IV LINE AND TELE LEADS REMOVED, WRIST BANDS REMOVED. PICKED UP BY [facility]. PERSONAL BELONGINGS WITH PT UPON DISCHARGE. TRANSPORTED VIA [employer].
[2016-05-28] MEDS ORDERED: predniSONE 20 MG TAB PO SCH (09:00)
== END 2016-05-27 18:07 | DRG 208 ==
LOC: MED 20:31 → MTU 22:00 → MIC 05-22 12:38 → MTU 05-26 13:50
PROVIDERS: ADMIT Internal Medicine Pulmonary Disease; ATTEND Internal Medicine Pulmonary Disease
PROC: 5A09357 Assistance with Respiratory Ventilation, Less than 24 Consecutive Hours, Continuous Positive Airway Pressure (ICD-10-PCS; 2016-05-19)
PROC: 30233N1 Transfusion of Nonautologous Red Blood Cells into Peripheral Vein, Percutaneous Approach (ICD-10-PCS; 2016-05-22)
PROC: 0BH17EZ Insertion of Endotracheal Airway into Trachea, Via Natural or Artificial Opening (ICD-10-PCS; 2016-05-23)
PROC: 0DB98ZX Excision of Duodenum, Via Natural or Artificial Opening Endoscopic, Diagnostic (ICD-10-PCS; 2016-05-23)
PROC: 5A1945Z Respiratory Ventilation, 24-96 Consecutive Hours (ICD-10-PCS; principal; 2016-05-23 14:30)
PROC: 0DJD8ZZ Inspection of Lower Intestinal Tract, Via Natural or Artificial Opening Endoscopic (ICD-10-PCS; 2016-05-24)
DX: J96.21 Acute and chronic respiratory failure with hypoxia (principal); J44.1 Chronic obstructive pulmonary disease with (acute) exacerbation; K92.2 Gastrointestinal hemorrhage, unspecified; Z68.1 Body mass index [BMI] 19.9 or less, adult; E44.1 Mild protein-calorie malnutrition; D62 Acute posthemorrhagic anemia; J44.0 Chronic obstructive pulmonary disease with (acute) lower respiratory infection; R64 Cachexia; J20.9 Acute bronchitis, unspecified; I10 Essential (primary) hypertension; F41.9 Anxiety disorder, unspecified; K26.9 Duodenal ulcer, unspecified as acute or chronic, without hemorrhage or perforation; K64.8 Other hemorrhoids; I95.9 Hypotension, unspecified; Z99.81 Dependence on supplemental oxygen; Z87.891 Personal history of nicotine dependence; Z79.899 Other long term (current) drug therapy